=== PATIENT | male | born 1985 | race Caucasian/White ===

== ENCOUNTER → 2019-11-19 16:51 | Outpatient (CLI) | payer MEDICAID, SELFPAY ==
[2019-11-19 17:47] LABS: Basophils # 0.1 K/mm3 (0-0.2); Basophils % 0.8 % (0.1-2.0); Eosinophils # 0.2 K/mm3 (0.0-0.4); Eosinophils % 2.7 % (0.1-12.0); Hematocrit 45.6 % (42.0-52.0); Hemoglobin 15.3 g/dL (14.1-18.0); Lymphocytes % 29.3 % (10-50); Mean Corpuscular HGB Conc 33.7 g/dL (31.8-35.4); Mean Corpuscular Hemoglobin 30.2 pg (27.0-31.2); Mean Corpuscular Volume 89.8 fl (80-94); Mean Platelet Volume 8.4 fl (7.4-10.4); Monocytes # 0.6 K/mm3 (0.1-1.0); Monocytes % 8.2 % (1.7-9.3); Neutrophils # 4.1 K/mm3 (1.8-7.8); Platelet Count 402 K/mm3 (142-424); Red Blood Count 5.08 M/mm3 (4.60-6.20); Red Cell Distribution Width 13.6 % (11.5-17.5)
[2019-11-19 17:49] LABS: Chloride 107 mmol/L (98-107)
[2019-11-19 17:50] LABS: Potassium 4.5 mmoL/L (3.5-5.1); Sodium 138 mmol/L (136-145)
[2019-11-19 17:52] LABS: Alanine Aminotransferase 41 U/L (12-78); Albumin Level 4.7 g/dl (3.5-5.0); Albumin/Globulin Ratio 1.7 (1.1-1.8); Alkaline Phosphatase 84 U/L (38-126); Anion Gap 13.5 mEq/L (5-15); Aspartate Amino Transferase 30 U/L (17-59); Bilirubin,Total 0.6 mg/dl (0.2-1.3); Blood Urea Nitrogen 14 mg/dl (9-20); Carbon Dioxide 22 mmol/L (22.0-30.0); Estimated Glomerular Filt Rate 85 ml/min (>60); GFR (African American) 102 ML/MIN (>60); Globulin 2.8 g/dL (1.3-3.2); Total Protein,Serum 7.5 g/dl (6.3-8.2)
[2019-11-19 17:53] LABS: Calcium 9.6 mg/dl (8.4-10.2); Chol/HDL Ratio 4.7 (1-3.5); Cholesterol 163 mg/dl (140-200); Glucose 121 mg/dl (74-100); HDL Cholesterol 35 mg/dl (40-60); Triglycerides 139 mg/dl (30-150); VLDL Cholesterol 28 mg/dL (0-40)
[2019-11-19 18:05] LABS: Direct LDL Cholesterol 117.46 mg/dL (100-129)
[2019-11-19 18:11] LABS: T4 (Thyroxine) 8.9 ug/dl (5.53-11.0)
[2019-11-19 18:24] LABS: Thyroid Stimulating Hormone 0.96 uIU/mL (0.465-4.68)
[2019-11-19 20:46] LABS: Hemoglobin A1C 6.2 % (4.0-6.0)
[2019-11-21 11:18] LABS: Vitamin D 25 Hydroxy 23.6 ng/mL (30.0-100.0)
== END ==
PROVIDERS: Visit Provider Physician Assistant
DX: R73.03 Prediabetes (principal); E55.9 Vitamin D deficiency, unspecified; Z79.899 Other long term (current) drug therapy
CPT/HCPCS: 80053; 80061; 82652; 83036; 84436; 84443; 85025

== ENCOUNTER 2020-02-01 16:09 | Emergency (ER) | payer MEDICAID, SELFPAY ==
[2020-02-01 16:18] VITALS: BP 150/98; PULSE 88; RESP 17; O2SAT 100; BMI 38.8
--- NOTE | 2020-02-01 16:34 | HMH.EDUTC ---
[facility] [place] Disposition Clinical Impression: Otitis media Qualifiers: Otitis media type: unspecified Laterality: right Qualified Code(s): H66.91 - Otitis media, unspecified, right ear Disposition: Home, Self-Care Condition on Discharge: Good Instructions: Middle Ear Infection, Middle Ear Infections (Alternative Therapy), Amoxicillin Additional Instructions: Take medication as prescribed *Over the counter Motrin and/or Tylenol may help with fever or pain Return if needed Straight to ER if any life threatening symptoms Follow up with Family Doctor if no improvement or any worsening of symptoms Prescriptions: Amoxicillin [Amoxicillin 500mg Cap] 500 mg PO TID #30 cap Transmission Status: Pending to [id number] Referrals: Makeda Garcia PA [Primary Care Provider] - As needed Time of Disposition: 16:44 Medical Decision Making - Cesar Inquiry Pt receiving controlled substance: No Cesar was queried for this patient: No Vital Signs: 02/01/20 16:18 Pulse Rate [Radial] 88 Respiratory Rate 17 Blood Pressure [Right Arm] 150/98 H Blood Pressure Mean [Right Arm] 115 Blood Pressure Source [Right Arm] Automatic Cuff Blood Pressure Position [Right Arm] Sitting 02 Sat by Pulse Oximetry 100 Oxygen Delivery Method Room Air [facility] [place] HPI - General Stated complaint: Ear pain Time Seen by Provider: 02/01/20 16:34 Mode of Arrival: Ambulatory Source of Information: Patient Limitations: No Limitations Description of Symptoms (Recalled from Triage Doc. by RN): right ear stopped up HEENT Symptoms (Recalled from RN notes): Yes Resp Symptoms (Recalled from RN notes): No Skin Symptoms (Recalled from RN notes): No MS Symptoms (Recalled from RN notes): No Functional Status (Recalled from RN notes): wnl - History of Present Illness Provider Complaint: Patient states that he has been having pain in his right ear and feeling like it was stopped up and having pain and pressure States that he is not sure if it is infected or stopped up but today it was hurting worse so he came in to get it checked - Related Data Previous Rx's Medication Instructions Recorded hydrochlorothiazide 12.5 mg tablet 12.5 mg PO DAILY #90 tab 11/19/19 lisinopril 40 mg tablet 40 mg PO DAILY #90 tab 11/19/19 loratadine 10 mg tablet 10 mg PO DAILY #90 tab 06/10/20 simvastatin 40 mg tablet 40 mg PO QHS #90 tab 11/19/19 cholecalciferol (vitamin D3) 25 25 mcg PO DAILY #90 cap 11/21/19 mcg (1,000 unit) capsule ergocalciferol (vitamin D2) 1,250 1,250 mcg PO QWEEK #12 cap 11/21/19 mcg (50,000 unit) capsule omeprazole magnesium 20 mg 20 mg PO DAILY #90 tab 01/22/20 tablet,delayed release Amoxicillin [Amoxicillin 500mg 500 mg PO TID #30 cap 02/01/20 Cap] Allergies Allergy/AdvReac Type Severity Reaction Status Date / Time aspirin [ASPIRIN] Allergy Unknown Verified 11/19/19 13:09 - Worker's Comp Is this a Worker's Comp case?: No [facility] History - Hepatitis A Screen Drug use history?: No High risk sexual behaviors?: No History of sexually transmitted infection?: No Currently employed?: No Childcare worker?: No Do you have indoor plumbing?: Yes Do you have electricity?: Yes Attestation statement:: This patient has been screened for Hepatitis A risk factors. I have reviewed the patient's past medical history: Yes Medical History: Reports:: Diabetes Mellitus Type 2, Gastroesophageal Reflux Disease(GERD), Hyperlipidemia, Hypertension Other Medical History: Reports: Other Other Surgeries: Yes: Appendectomy Amputation: No Fractures: No - Social History Smoking Status: Current every day smoker Tobacco Type: cigarettes # Packs/Day (cigarettes): 1 Alcohol Intake: never Substance Use Type: denies use Occupational Status: employed Housing: house Household Members: family Family Hx:: Diabetes, Hypertension ROS Obtained: Yes All systems reviewed & no additional complaints, Yes Systems reviewed as appropriate & no additional comp
[2020-02-01 17:02] VITALS: BP 150/98; PULSE 88; RESP 17; TEMP 36.7; O2SAT 100
== END 2020-02-01 17:03 | disposition home or self-care (01) ==
PROVIDERS: Emergency Provider Nurse Practitioner; PCP Physician Assistant
DX: H66.91 Otitis media, unspecified, right ear (principal); E11.9 Type 2 diabetes mellitus without complications; I10 Essential (primary) hypertension; E78.5 Hyperlipidemia, unspecified; K21.9 Gastro-esophageal reflux disease without esophagitis; F17.210 Nicotine dependence, cigarettes, uncomplicated; Z79.899 Other long term (current) drug therapy
CPT/HCPCS: 99201

== ENCOUNTER 2020-04-26 16:39 | Emergency (ER) | payer MEDICAID, SELFPAY ==
[2020-04-26 16:49] VITALS: BP 120/73; PULSE 89; RESP 18; TEMP 36.8; O2SAT 100; BMI 39.6
[2020-04-26 17:05] VITALS: BP 120/73; PULSE 89; RESP 18; TEMP 36.8; O2SAT 100; BMI 39.6
--- NOTE | 2020-04-26 17:20 | HMH.EDUTC ---
[facility] [place] Clinical Impression: Low back pain Qualifiers: Chronicity: unspecified Back pain laterality: bilateral Sciatica presence: without sciatica Qualified Code(s): M54.5 - Low back pain Disposition: Home, Self-Care Condition on Discharge: Good Additional Instructions: Go home and rest. It would be best if you rested tomorrow too. No heavy lifting. No twisting. Take the oral medications as directed. The muscle relaxer (robaxin) will make you drowsy, so don't drive or operate heavy machinery after taking it. Follow up with your regular doctor. GO TO THE ER FOR ANY WORSENING SYMPTOMS OR CONCERN, ESPECIALLY BOWEL OR BLADDER ISSUES, SADDLE AREA NUMBNESS, FEVER, ETC Prescriptions: predniSONE [Prednisone 20mg Tab] 20 mg PO BID 5 Days #10 tab Transmission Status: Received by [facility] Methocarbamol [Robaxin 500mg Tab] 500 mg PO BIDP PRN #30 tab PRN Reason: Muscle Spasm Transmission Status: Received by [id number] Referrals: Makeda Garcia PA [Primary Care Provider] - Time of Disposition: 17:59 Medical Decision Making - Medical Records Medical records reviewed: No: I reviewed the patient's medical records. - Cesar Inquiry Pt receiving controlled substance: No Vital Signs: 04/26/20 16:49 04/26/20 17:05 04/26/20 18:09 Temperature 98.2 F 98.2 F 98.2 F Temperature Source Oral Oral Pulse Rate 89 Pulse Rate [Right Radial] 89 89 Respiratory Rate 18 18 18 Blood Pressure 120/73 Blood Pressure [Right Arm] 120/73 120/73 Blood Pressure Mean [Right Arm] 88 88 Blood Pressure Source [Right Arm] Automatic Cuff Automatic Cuff Blood Pressure Position [Right Arm] Sitting Sitting 02 Sat by Pulse Oximetry 100 100 Oxygen Delivery Method Room Air Room Air - Lab Data Lab Results 04/26/20 17:45: Urine Color Yellow, Urine Appearance Clear, Urine pH 7.5, Ur Specific [place] 1.020, Urine Protein Negative, Urine Glucose (UA) Negative, Urine Ketones Negative, Urine Blood Negative, Urine Nitrate Negative, Urine Bilirubin Negative, Urine Urobilinogen 0.2, Ur Leukocyte Esterase Negative - Radiology Data #1 Image(s): L-Spine Image Reviewed: Yes I reviewed the patient's radiology image Preliminary Findings: No Fracture Seen [facility] [place] - General Stated complaint: Back pain for 4 WKs Time Seen by Provider: 04/26/20 17:20 Mode of Arrival: Ambulatory Source of Information: Patient Limitations: No Limitations Description of Symptoms (Recalled from Triage Doc. by RN): Pt reports a numbness feeling in his back for approx 4 weeks after sitting for long periods of time. Pt denies no injury. Pt denies any bowel or bladder symptoms, pt states numbness does not radiate down legs. HEENT Symptoms (Recalled from RN notes): No Resp Symptoms (Recalled from RN notes): No Skin Symptoms (Recalled from RN notes): No MS Symptoms (Recalled from RN notes): Yes Functional Status (Recalled from RN notes): WNL - History of Present Illness Provider Complaint: He states that for the past 2 weeks he has had lower back pain. He denies any injury or falls. He states that in the past he has had episodes of pain similar to this. He denies any difficulty urinating. - Related Data Home Medications Medication Instructions Recorded Confirmed Omeprazole Magnesium [Prilosec OTC] 20 mg PO DAILY 04/26/20 04/26/20 hydroCHLOROthiazide 12.5 mg PO DAILY 04/26/20 04/26/20 [Hydrochlorothiazide 12.5mg Tab] lisinopriL [Lisinopril 40mg Tablet] 40 mg PO DAILY 04/26/20 04/26/20 Previous Rx's Medication Instructions Recorded Methocarbamol [Robaxin 500mg Tab] 500 mg PO BIDP PRN #30 tab 04/26/20 predniSONE [Prednisone 20mg 20 mg PO BID 5 Days #10 tab 04/26/20 Tab] Allergies Allergy/AdvReac Type Severity Reaction Status Date / Time aspirin [ASPIRIN] Allergy Unknown Verified 02/25/20 15:38 - Worker's Comp Is this a Worker's Comp case?: No [facility] History - Hepatitis A
--- NOTE | 2020-04-26 17:42 | XR_ITS ---
PROCEDURE: XR LUMBAR SPINE 2-3V CLINICAL INDICATION: low back pain COMPARISON: No exams were available for comparison FINDINGS: There is normal alignment. There are degenerative changes with osteophytes along the anterior aspect of L3 L1-T12 and T11 with mild wedging of T12-L1 and L3 which may be chronic. There is an area of questionable discontinuity along the anterior and inferior aspect of the L2 vertebral body which could be developmental versus a nondisplaced fracture. On the AP view there is also lucency through the lateral aspect of the T12 transverse process but may be related to overlying soft tissue artifact or fold. Other findings: IMPRESSION: There are degenerative changes with questionable fracture of the L2 vertebral body and T12 transverse process on the left. CT may provide further evaluation if clinically warranted. Dictated by: Gamaliel Pablo MD 04/27/2020 05:28 Gamaliel Pablo MD in [place] 04/27/2020 05:28
[2020-04-26 17:45] LABS: Apearance,Urine Clear (Clear); Color,Urine Yellow (Yellow); Glucose,Urine (UA) Negative (Negative); PH,Urine 7.5 (5.0-8.5); Protein,Urine Negative (Negative)
[2020-04-26 17:46] LABS: Bilirubin,Urine Negative (Negative); Blood, Urine Negative (Negative); Ketones,Urine Negative (Negative); UTC Leukocyte Esterase,Urine Negative (Negative); UTC Nitrate,Urine Negative (Negative); Urobilinogen,Urine 0.2 EU/dl (0.2)
[2020-04-26 18:09] VITALS: BP 120/73; PULSE 89; RESP 18; TEMP 36.8; O2SAT 100
--- NOTE | 2020-04-27 13:09 | PC.NURSE ---
Spoke to patient related to Provider request. Notified patient of final read of xrays. Educated patient to follow up with his PCP to see about getting ct scan as suggested by radiologist.
== END 2020-04-26 18:14 | disposition home or self-care (01) ==
LOC: ER 16:50 → UTC 16:50
PROVIDERS: Emergency Provider Nurse Practitioner Family; PCP Physician Assistant
DX: M54.5 Low back pain (principal); I10 Essential (primary) hypertension; E11.9 Type 2 diabetes mellitus without complications; K21.9 Gastro-esophageal reflux disease without esophagitis; E78.5 Hyperlipidemia, unspecified; F17.210 Nicotine dependence, cigarettes, uncomplicated; Z79.899 Other long term (current) drug therapy
CPT/HCPCS: 72100; 81003; 99202

== ENCOUNTER → 2020-05-11 08:11 | Outpatient (CLI) | payer MEDICAID, SELFPAY ==
--- NOTE | 2020-05-11 08:11 | CT_ITS ---
PROCEDURE: CT LUMBAR SPINE WO CON CLINICAL HISTORY: Low back pain lbp no known injury numbness sacral area does not radiate to legs COMPARISON: CR XR LUMBAR SPINE 2-3V from 04/26/2020 TECHNIQUE: Axial images obtained with sagittal and coronal reformats. All CT scans at the facility use one or more dose reduction, viz: automated exposure control, ma/kV adjustment per patient size (including targeted exams where dose is matched to indication, i.e. head), or iterative reconstruction technique. FINDINGS: There is normal alignment. No acute fracture or dislocation. No lytic or blastic change. There is multilevel lumbar spondylosis. T11-T12: Degenerative disc disease. T12-L1: Degenerate disc disease with anterior osteophytes. L1-L2: Mild degenerative disc disease. L2-L3: Small anterior osteophytes. L3-L4: There is mild facet and ligamentum hypertrophy with minimal bulging disc. There is narrowing of the canal at 10 mm and mild bilateral lateral recess and foraminal narrowing. L4-5: Mild concentric bulging disc with facet and ligamentum hypertrophy with canal stenosis 8 mm. Mild bilateral lateral recess and foraminal narrowing. L5-S1: Bulging disc with facet and ligamentum hypertrophy with canal stenosis at 10 mm with bilateral lateral recess and foraminal narrowing. IMPRESSION: Multilevel lumbar spondylosis with canal stenosis as described above. Dictated by: Gamaliel Pablo MD 05/12/2020 10:41 Gamaliel Pablo MD in [place] 05/12/2020 10:41
== END ==
PROVIDERS: PCP Physician Assistant; Visit Provider Nurse Practitioner Family
DX: M54.5 Low back pain (principal)
CPT/HCPCS: 72131

== ENCOUNTER 2020-05-19 15:07 | Outpatient (RCR) | payer MEDICAID, SELFPAY ==
--- NOTE | 2020-05-19 16:07 | HMH.PTOPEV ---
PT Outpatient Evaluation Rehab PT Outpatient Evaluation Start: 05/19/20 15:17 Freq: Status: Active Protocol: Document 05/19/20 15:54 ELVIS (Rec: 05/19/20 16:07 ELVIS [id number]) Electronically Signed By Jace Nuñez, PT 05/19/20 15:54 Outpatient Therapy Subjective History Subjective History Patient is a 34 year old male presenting to outpatient PT with reports of acute low back pain starting approximately 8 weeks ago after doing some exercises at home. No radicular symptoms to report. He initially experienced numbness in the upper lumbar spine. Pain is specific to the upper lumbar area. Most recent imaging indicates multi -level DDD, spondylosis and multiple bulging discs. Comorbidities include hx of HTN, HL and appendectomy. Chief Complaint Pain,Stiff Symptom Type Dull,Numbness Symptoms Relieved By Heat,OTC Meds Symptoms Aggravated By Sitting,Bending/Stooping, Lifting Prior Functional Limitations None Current Functional Limitations Lifting,Housework,Sleeping, Sitting,Squatting,Recreation Activity,Bending/Stooping Symptom Description Constant but Variable Level of pain today (0-10) 4 Pain scale - at its best (0-10) 4 Pain scale - at its worst (0-10) 7 Lumbopelvic Eval Posture Thoracic Spine Posture Standing Position Increased Kyphosis Lumbar Spine Posture Standing Position Increased Lordosis Palapation tenderness bilateral lumbar spinal tenderness Yes: L1/L2 2/4 Accessory Movement T12 bilateral L2 bilateral Range of Motion Lumbar Spine ROM Reason Not Measured Within Functional Limits Manual Muscle Test Bilateral Knee Extension Strength Grade 5 Normal Knee Flexion Strength Grade 5 Normal Hip Flexion Strength Grade 5 Normal Extensor Hallucis Longus Strength Grade 5 Normal Ankle Dorsiflexion Strength Grade 5 Normal Gastronemius/Soleus Strength Grade 5 Normal DTR Rt Patellar 2+ Lt Patellar 2+ Rt Gastroc/Soleus 2+ Lt Gastroc/Soleus 2+ Special Tests Lumbar Spine Screen Positive Hip Jack (TREE) Test Positive Left Hip Romana Test Positive Left,Positive Right Hip Piriformis Test Po
== END 2020-05-19 15:10 | disposition home or self-care (01) ==
LOC: PT 15:07
PROVIDERS: PCP Physician Assistant; Visit Provider Nurse Practitioner Family
DX: M54.5 Low back pain (principal)
CPT/HCPCS: 97163

== ENCOUNTER → 2020-06-01 17:25 | Outpatient (CLI) | payer MEDICAID, SELFPAY ==
[2020-06-01 18:27] LABS: Basophils # 0.1 K/mm3 (0-0.2); Basophils % 1.1 % (0.1-2.0); Eosinophils # 0.2 K/mm3 (0.0-0.4); Eosinophils % 2.1 % (0.1-12.0); Hemoglobin 15.7 g/dL (14.1-18.0); Lymphocytes # 2.3 K/mm3 (0.7-4.5); Lymphocytes % 31.6 % (10-50); Mean Corpuscular HGB Conc 33.3 g/dL (31.8-35.4); Mean Corpuscular Hemoglobin 29.9 pg (27.0-31.2); Mean Corpuscular Volume 89.7 fl (80-94); Mean Platelet Volume 8.7 fl (7.4-10.4); Monocytes # 0.7 K/mm3 (0.1-1.0); Monocytes % 9.5 % (1.7-9.3); Neutrophils # 4.1 K/mm3 (1.8-7.8); Neutrophils % 55.6 % (37.0-80.0); Platelet Count 447 K/mm3 (142-424); Red Blood Count 5.24 M/mm3 (4.60-6.20); Red Cell Distribution Width 14.1 % (11.5-17.5); White Blood Count 7.3 K/mm3 (4.8-10.8)
[2020-06-01 18:45] LABS: Alanine Aminotransferase 66 U/L (12-78); Albumin Level 4.8 g/dl (3.5-5.0); Albumin/Globulin Ratio 1.7 (1.1-1.8); Alkaline Phosphatase 78 U/L (38-126); Anion Gap 14.1 mEq/L (5-15); Aspartate Amino Transferase 41 U/L (17-59); Bilirubin,Total 0.5 mg/dl (0.2-1.3); Blood Urea Nitrogen 13 mg/dl (9-20); Carbon Dioxide 24 mmol/L (22.0-30.0); Chloride 103 mmol/L (98-107); Chol/HDL Ratio 5.2 (1-3.5); Cholesterol 193 mg/dl (140-200); Estimated Glomerular Filt Rate 85 ml/min (>60); GFR (African American) 102 ML/MIN (>60); Globulin 2.9 g/dL (1.3-3.2); Glucose 112 mg/dl (74-100); HDL Cholesterol 37 mg/dl (40-60); Potassium 4.1 mmoL/L (3.5-5.1); Sodium 137 mmol/L (136-145); Total Protein,Serum 7.7 g/dl (6.3-8.2); Triglycerides 220 mg/dl (30-150); VLDL Cholesterol 44 mg/dL (0-40)
[2020-06-01 19:04] LABS: 25-OH Vitamin D, Total 26.3 ng/mL (30-100)
[2020-06-01 19:06] LABS: Direct LDL Cholesterol 120.59 mg/dL (100-129)
[2020-06-01 19:18] LABS: Thyroid Stimulating Hormone 1.22 uIU/mL (0.465-4.68)
[2020-06-01 19:32] LABS: Hemoglobin A1C 6.3 % (4.0-6.0)
[2020-06-01 20:23] LABS: Free T4 (Free Thyroxine) 1.13 ng/dl (0.78-2.19)
== END ==
PROVIDERS: Visit Provider Physician Assistant
DX: R53.83 Other fatigue (principal); R73.03 Prediabetes; E55.9 Vitamin D deficiency, unspecified; Z79.899 Other long term (current) drug therapy
CPT/HCPCS: 80053; 80061; 82306; 83036; 84439; 84443; 85025

== ENCOUNTER → 2020-07-07 16:48 | Outpatient (CLI) | payer MEDICAID, SELFPAY ==
[2020-07-07 17:17] LABS: Basophils # 0.1 K/mm3 (0-0.2); Basophils % 1.1 % (0.1-2.0); Eosinophils # 0.3 K/mm3 (0.0-0.4); Eosinophils % 3.4 % (0.1-12.0); Hematocrit 45.2 % (42.0-52.0); Lymphocytes % 34.2 % (10-50); Mean Corpuscular HGB Conc 33.1 g/dL (31.8-35.4); Mean Corpuscular Hemoglobin 30.2 pg (27.0-31.2); Mean Corpuscular Volume 91.1 fl (80-94); Mean Platelet Volume 8.1 fl (7.4-10.4); Monocytes # 0.9 K/mm3 (0.1-1.0); Monocytes % 10.7 % (1.7-9.3); Neutrophils # 4.4 K/mm3 (1.8-7.8); Neutrophils % 50.6 % (37.0-80.0); Platelet Count 424 K/mm3 (142-424); Red Blood Count 4.96 M/mm3 (4.60-6.20); Red Cell Distribution Width 13.4 % (11.5-17.5); White Blood Count 8.7 K/mm3 (4.8-10.8)
[2020-07-09 16:50] LABS: Peripheral Smear Review Scanned Result
== END ==
PROVIDERS: Visit Provider Physician Assistant
DX: R79.89 Other specified abnormal findings of blood chemistry (principal)
CPT/HCPCS: 85025

== ENCOUNTER → 2021-02-21 18:28 | Outpatient (CLI) | payer MEDICAID, SELFPAY ==
[2021-02-21 18:47] LABS: Chloride 105 mmol/L (98-107); Potassium 4.1 mmoL/L (3.5-5.1); Sodium 139 mmol/L (136-145)
[2021-02-21 18:49] LABS: Blood Urea Nitrogen 12 mg/dl (9-20); Estimated Glomerular Filt Rate 84 ml/min (>60); GFR (African American) 102 ML/MIN (>60)
[2021-02-21 18:50] LABS: Alanine Aminotransferase 44 U/L (12-78); Albumin Level 4.5 g/dl (3.5-5.0); Albumin/Globulin Ratio 1.7 (1.1-1.8); Alkaline Phosphatase 80 U/L (38-126); Anion Gap 15.1 mEq/L (5-15); Aspartate Amino Transferase 30 U/L (17-59); Bilirubin,Total 0.4 mg/dl (0.2-1.3); Calcium 9.5 mg/dl (8.4-10.2); Carbon Dioxide 23 mmol/L (22.0-30.0); Cholesterol 160 mg/dl (140-200); Globulin 2.7 g/dL (1.3-3.2); Glucose 113 mg/dl (74-100); Total Protein,Serum 7.2 g/dl (6.3-8.2); Triglycerides 124 mg/dl (30-150); VLDL Cholesterol 25 mg/dL (0-40)
[2021-02-21 18:51] LABS: Chol/HDL Ratio 5.3 (1-3.5); HDL Cholesterol 30 mg/dl (40-60)
[2021-02-21 19:06] LABS: Basophils # 0.1 K/mm3 (0-0.2); Basophils % 0.8 % (0.1-2.0); Eosinophils # 0.2 K/mm3 (0.0-0.4); Eosinophils % 2.1 % (0.1-12.0); Hematocrit 44.3 % (42.0-52.0); Hemoglobin 14.6 g/dL (14.1-18.0); Lymphocytes # 2.1 K/mm3 (0.7-4.5); Lymphocytes % 28.3 % (10-50); Mean Corpuscular Hemoglobin 29.5 pg (27.0-31.2); Mean Corpuscular Volume 89.4 fl (80-94); Mean Platelet Volume 7.5 fl (7.4-10.4); Monocytes # 0.8 K/mm3 (0.1-1.0); Monocytes % 10.3 % (1.7-9.3); Neutrophils # 4.3 K/mm3 (1.8-7.8); Neutrophils % 58.6 % (37.0-80.0); Platelet Count 448 K/mm3 (142-424); Red Blood Count 4.96 M/mm3 (4.60-6.20); Red Cell Distribution Width 13.1 % (11.5-17.5); White Blood Count 7.4 K/mm3 (4.8-10.8)
[2021-02-21 19:08] LABS: Free T4 (Free Thyroxine) 1.03 ng/dl (0.78-2.19)
[2021-02-21 19:10] LABS: 25-OH Vitamin D, Total 29.1 ng/mL (30-100)
[2021-02-21 19:16] LABS: Hemoglobin A1C 6.3 % (4.0-6.0)
[2021-02-21 19:20] LABS: Thyroid Stimulating Hormone 0.86 uIU/mL (0.465-4.68)
[2021-02-21 21:33] LABS: Direct LDL Cholesterol 107.61 mg/dL (100-129)
[2021-02-23 06:30] LABS: Testosterone,Total 591 ng/dL (264-916)
== END ==
PROVIDERS: Visit Provider Physician Assistant
DX: I10 Essential (primary) hypertension (principal); E78.5 Hyperlipidemia, unspecified; R73.03 Prediabetes; E55.9 Vitamin D deficiency, unspecified
CPT/HCPCS: 80053; 80061; 82306; 83036; 84403; 84439; 84443; 85025

== ENCOUNTER 2021-05-07 19:15 | Emergency (ER) | payer MEDICAID, SELFPAY ==
[2021-05-07 19:20] VITALS: BP 130/80; PULSE 85; RESP 18; TEMP 37.1; O2SAT 100; BMI 40.6
--- NOTE | 2021-05-07 19:43 | HMH.EDUTC ---
[facility] [place] Disposition Clinical Impression: Groin discomfort Qualifiers: Laterality: right Qualified Code(s): R10.31 - Right lower quadrant pain Disposition: Home, Self-Care Condition on Discharge: Good Instructions: Groin Strain Additional Instructions: Make sure to call and make appointment with your Family Doctor for further evaluation and testing Follow up with your Family Doctor Return if needed Straight to ER if any life threatening symptoms or trouble urinating Referrals: Makeda Garcia PA [Primary Care Provider] - As needed Forms: Work/School Release Time of Disposition: 20:12 Medical Decision Making - Cesar Inquiry Pt receiving controlled substance: No Cesar was queried for this patient: No Vital Signs: 05/07/21 19:20 Temperature 98.8 F Temperature Source Oral Pulse Rate [Right Brachial] 85 Respiratory Rate 18 Blood Pressure [Right Arm] 130/80 Blood Pressure Mean [Right Arm] 96 Blood Pressure Source [Right Arm] Automatic Cuff Blood Pressure Position [Right Arm] Sitting 02 Sat by Pulse Oximetry 100 Oxygen Delivery Method Room Air - Lab Data Lab results reviewed: Yes: I reviewed the patient's lab results. Lab Results 05/07/21 19:49: Urine Color Yellow, Urine Appearance Clear, Urine pH 6.0, Ur Specific [place] 1.015, Urine Protein Negative, Urine Glucose (UA) Negative, Urine Ketones Negative, Urine Blood Negative, Urine Nitrate Negative, Urine Bilirubin Negative, Urine Urobilinogen 0.2, Ur Leukocyte Esterase Negative Medical Decision Narrative: Discussed with patient UA clean Patient still denies fever, chills, body aches trouble urinating or discharge from Penis an no obvious hernia palpated on exam Discussed with patient that we could order abdominal ultrasound and/or He could follow up with his PCP for further evaluation and tested and he agreed he would just follow up with his PCP for further testing and evaluation if pain continues [facility] [place] HPI - General Stated complaint: Groin pain Time Seen by Provider: 05/07/21 19:43 Mode of Arrival: Ambulatory Source of Information: Patient Limitations: No Limitations Description of Symptoms (Recalled from Triage Doc. by RN): PATIENT C/O RIGHT SIDED GROIN PAIN SINCE SUNDAY HEENT Symptoms (Recalled from RN notes): No Resp Symptoms (Recalled from RN notes): No Skin Symptoms (Recalled from RN notes): No MS Symptoms (Recalled from RN notes): No Functional Status (Recalled from RN notes): WNL - History of Present Illness Provider Complaint: Patient states that he has been having pain in his right groin area on and off since states that seems like sitting makes it worse at times Denies fever, denies chills, denies trouble with urination States that tonight he was still a little tender at times when he would sit down so he came in to get checked Denies known injury States that he did have pain in his lower back area 2 weeks ago but that got better - Related Data Home Medications Medication Instructions Recorded Confirmed Atorvastatin Calcium [Lipitor 10mg 10 mg PO HS 05/07/21 05/07/21 Tab] Metformin HCl [Metformin HCl ER] 500 mg PO DAILY 05/07/21 05/07/21 Omeprazole Magnesium 20 mg PO DAILY 05/07/21 05/07/21 hydroCHLOROthiazide 12.5 mg PO DAILY 05/07/21 05/07/21 [Hydrochlorothiazide 12.5mg Tab] lisinopriL [Lisinopril] 40 mg PO DAILY 05/07/21 05/07/21 Allergies Allergy/AdvReac Type Severity Reaction Status Date / Time aspirin [ASPIRIN] Allergy Unknown Verified 02/21/21 16:04 - Worker's Comp Is this a Worker's Comp case?: No [facility] History - Hepatitis A Screen Drug use history?: No High risk sexual behaviors?: No History of sexually transmitted infection?: No Currently employed?: No Childcare worker?: No Do you have indoor plumbing?: Yes Do you have electricity?: Yes Attestation statement:: This patient has been screened for Hepatitis A risk factors. I have reviewed the patient's past medical history: Yes
[2021-05-07 19:50] LABS: Apearance,Urine Clear (Clear); Bilirubin,Urine Negative (Negative); Blood, Urine Negative (Negative); Color,Urine Yellow (Yellow); Glucose,Urine (UA) Negative (Negative); Ketones,Urine Negative (Negative); Protein,Urine Negative (Negative); Specific Gravity, Urine 1.015 (1.005-1.030); UTC Leukocyte Esterase,Urine Negative (Negative); UTC Nitrate,Urine Negative (Negative); Urobilinogen,Urine 0.2 EU/dl (0.2)
[2021-05-07 20:09] VITALS: BP 130/80; PULSE 85; RESP 18; TEMP 37.1; O2SAT 100
== END 2021-05-07 20:19 | disposition home or self-care (01) ==
PROVIDERS: Emergency Provider Nurse Practitioner; PCP Physician Assistant
DX: R10.31 Right lower quadrant pain (principal); K21.9 Gastro-esophageal reflux disease without esophagitis; E11.9 Type 2 diabetes mellitus without complications; I10 Essential (primary) hypertension; F17.210 Nicotine dependence, cigarettes, uncomplicated
CPT/HCPCS: 81003; 99202; G0463

== ENCOUNTER → 2021-07-05 17:58 | Outpatient (CLI) | payer MEDICAID, SELFPAY ==
[2021-07-05 18:40] LABS: Alanine Aminotransferase 53 U/L (12-78); Albumin Level 5.2 g/dl (3.5-5.0); Albumin/Globulin Ratio 1.8 (1.1-1.8); Alkaline Phosphatase 72 U/L (38-126); Anion Gap 12.3 mEq/L (5-15); Aspartate Amino Transferase 36 U/L (17-59); Bilirubin,Total 0.6 mg/dl (0.2-1.3); Blood Urea Nitrogen 13 mg/dl (9-20); Calcium 10.1 mg/dl (8.4-10.2); Carbon Dioxide 27 mmol/L (22.0-30.0); Chloride 102 mmol/L (98-107); Chol/HDL Ratio 6.3 (1-3.5); Cholesterol 233 mg/dl (140-200); Estimated Glomerular Filt Rate 75 ml/min (>60); GFR (African American) 91 ML/MIN (>60); Globulin 2.9 g/dL (1.3-3.2); Glucose 108 mg/dl (74-100); HDL Cholesterol 37 mg/dl (40-60); Potassium 4.3 mmoL/L (3.5-5.1); Sodium 137 mmol/L (136-145); Total Protein,Serum 8.1 g/dl (6.3-8.2); Triglycerides 197 mg/dl (30-150); VLDL Cholesterol 39 mg/dL (0-40)
[2021-07-05 18:47] LABS: Basophils # 0.1 K/mm3 (0-0.2); Basophils % 1.8 % (0.1-2.0); Eosinophils # 0.2 K/mm3 (0.0-0.4); Eosinophils % 2.7 % (0.1-12.0); Hematocrit 46.4 % (42.0-52.0); Hemoglobin 15.3 g/dL (14.1-18.0); Lymphocytes # 2.5 K/mm3 (0.7-4.5); Lymphocytes % 35.2 % (10-50); Mean Corpuscular HGB Conc 32.9 g/dL (31.8-35.4); Mean Corpuscular Volume 91.3 fl (80-94); Mean Platelet Volume 8.1 fl (7.4-10.4); Monocytes # 0.6 K/mm3 (0.1-1.0); Monocytes % 8.9 % (1.7-9.3); Neutrophils # 3.7 K/mm3 (1.8-7.8); Neutrophils % 51.4 % (37.0-80.0); Platelet Count 483 K/mm3 (142-424); Red Blood Count 5.08 M/mm3 (4.60-6.20); Red Cell Distribution Width 13.6 % (11.5-17.5); White Blood Count 7.1 K/mm3 (4.8-10.8)
[2021-07-05 18:57] LABS: T4 (Thyroxine) 10.1 ug/dl (5.53-11.0)
[2021-07-05 19:10] LABS: Thyroid Stimulating Hormone 1.15 uIU/mL (0.465-4.68)
== END ==
PROVIDERS: Visit Provider Physician Assistant
DX: I10 Essential (primary) hypertension (principal); E78.5 Hyperlipidemia, unspecified; E66.9 Obesity, unspecified; Z68.37 Body mass index [BMI] 37.0-37.9, adult
CPT/HCPCS: 80053; 80061; 82306; 84436; 84443; 85025

== ENCOUNTER → 2021-08-10 16:08 | Outpatient (CLI) | payer MEDICAID, SELFPAY ==
[2021-08-10 17:43] LABS: Alanine Aminotransferase 61 U/L (12-78); Albumin Level 4.7 g/dl (3.5-5.0); Albumin/Globulin Ratio 1.9 (1.1-1.8); Alkaline Phosphatase 66 U/L (38-126); Anion Gap 14.4 mEq/L (5-15); Aspartate Amino Transferase 40 U/L (17-59); Bilirubin,Total 0.5 mg/dl (0.2-1.3); Blood Urea Nitrogen 11 mg/dl (9-20); Calcium 9.4 mg/dl (8.4-10.2); Carbon Dioxide 23 mmol/L (22.0-30.0); Chloride 104 mmol/L (98-107); Chol/HDL Ratio 5.7 (1-3.5); Cholesterol 170 mg/dl (140-200); Estimated Glomerular Filt Rate 84 ml/min (>60); GFR (African American) 102 ML/MIN (>60); Globulin 2.5 g/dL (1.3-3.2); Glucose 106 mg/dl (74-100); HDL Cholesterol 30 mg/dl (40-60); Potassium 4.4 mmoL/L (3.5-5.1); Sodium 137 mmol/L (136-145); Total Protein,Serum 7.2 g/dl (6.3-8.2); Triglycerides 173 mg/dl (30-150); VLDL Cholesterol 35 mg/dL (0-40)
[2021-08-10 17:54] LABS: Direct LDL Cholesterol 102.23 mg/dL (100-129)
[2021-08-10 18:15] LABS: Thyroid Stimulating Hormone 0.88 uIU/mL (0.465-4.68)
== END ==
PROVIDERS: Visit Provider Physician Assistant
DX: E78.5 Hyperlipidemia, unspecified (principal); R73.03 Prediabetes
CPT/HCPCS: 80053; 80061; 83036; 84443

== ENCOUNTER 2021-09-21 17:16 | Emergency (ER) | payer MEDICAID, SELFPAY ==
[2021-09-21 18:15] VITALS: BP 123/99; PULSE 94; RESP 14; TEMP 37; O2SAT 99; BMI 39.3
--- NOTE | 2021-09-21 18:39 | HMH.EDUTC ---
[facility] [place] Clinical Impression: Acute bronchitis Qualifiers: Bronchitis organism: unspecified organism Qualified Code(s): J20.9 - Acute bronchitis, unspecified Sinusitis Qualifiers: Sinusitis location: unspecified location Chronicity: acute Recurrence: non-recurrent Qualified Code(s): J01.90 - Acute sinusitis, unspecified Disposition: Home, Self-Care Condition on Discharge: Good Instructions: DI for Sinusitis, DI for Acute Bronchitis Additional Instructions: Drink plenty of fluids. Take tylenol or ibuprofen for pain or fever. Take the medications as directed. Follow up with your regular doctor. GO TO THE ER FOR ANY WORSENING SYMPTOMS Don't start the oral steroids until tomorrow, since you had the shot here today. The cough medication (promethazine dm) will make you drowsy, so don't drive or operate heavy machinery after taking it. Prescriptions: Promethazine/Dextromethorphan [Promethazine-Dm Syrup] 5 ml PO Q6HP PRN #240 ml PRN Reason: Cough Transmission Status: Pending to [facility] methylPREDNISolone [Medrol] 4 mg PO DIRECTED 6 Days #21 packet [facility]: [facility] Azithromycin [Z-Fabrizio 250mg Tab*] 250 mg PO UD DOSE PK #6 tab [facility] Referrals: Makeda Garcia PA [Primary Care Provider] - Time of Disposition: 19:06 Medical Decision Making - Medical Records Medical records reviewed: No: I reviewed the patient's medical records. - Cesar Inquiry Pt receiving controlled substance: No Vital Signs: 09/21/21 18:15 Temperature 98.6 F Temperature Source Oral Pulse Rate [Left] 94 H Respiratory Rate 14 Blood Pressure [Right Arm] 123/99 H Blood Pressure Mean [Right Arm] 107 02 Sat by Pulse Oximetry 99 Orders (Tests/Meds): ED MEDICATIONS Discontinued Medications Generic Name Dose Route Start Last Admin Trade Name Freq PRN Reason Stop Dose Admin Ceftriaxone Sodium 1 gm 09/21/21 18:50 09/21/21 19:01 Ceftriaxone 1gm Vial IM 09/21/21 18:51 1 gm ONCE ONE Administration Lidocaine HCl 0 ml 09/21/21 18:50 09/21/21 19:00 Lidocaine 1% 5ml Pf Vial IM 09/21/21 18:51 2 ml ONCE ONE Administration Methylprednisolone Sodium Succinate 125 mg 09/21/21 18:50 09/21/21 19:01 Methylprednisolone Sod Succ 125mg Vial IM 09/21/21 18:51 125 mg ONCE ONE Administration [facility] [place] - General Stated complaint: amna, cough runny nose Time Seen by Provider: 09/21/21 18:39 Mode of Arrival: Ambulatory Source of Information: Patient Limitations: No Limitations Description of Symptoms (Recalled from Triage Doc. by RN): pt c/o a cough and congestion since last night. HEENT Symptoms (Recalled from RN notes): Yes Resp Symptoms (Recalled from RN notes): Yes Skin Symptoms (Recalled from RN notes): No MS Symptoms (Recalled from RN notes): No Functional Status (Recalled from RN notes): wnl - History of Present Illness Provider Complaint: He c/o having a sinus infection for the past 1 week. He refuses any covid or influenza test. - Related Data Home Medications Medication Instructions Recorded Confirmed Omeprazole Magnesium 20 mg PO DAILY 05/07/21 08/10/21 blood sugar diagnostic See Rx Instructions .ROUTE 07/20/21 08/10/21 .MEDSUPPLY #10 each ergocalciferol (vitamin D2) 1,250 50,000 unit PO WEEKLY cap 07/20/21 08/10/21 mcg (50,000 unit) capsule Previous Rx's Medication Instructions Recorded tramadol 50 mg tablet 50 mg PO BID PRN #6 tab 05/20/21 buspirone 5 mg tablet 5 mg PO TID #90 tab 07/05/21 simvastatin 40 mg tablet 40 mg PO HS #90 tab 07/12/21 citalopram 10 mg tablet 10 mg PO DAILY #30 tab 07/20/21 mupirocin 2 % topical ointment 1 applic TOPICAL BID #22 g 07/20/21 temazepam 7.5 mg capsule 7.5 mg PO HS #30 cap 07/20/21 lisinopril 40 mg tablet See Rx Instructions .ROUTE 08/05/21 .COMPLEX #90 tablet glipizide 2.5 mg tablet, extended 2.5 mg PO DAILY
[2021-09-21 19:24] VITALS: BP 123/99; PULSE 94; RESP 14; TEMP 37
== END 2021-09-21 19:24 | disposition home or self-care (01) ==
PROVIDERS: Emergency Provider Nurse Practitioner Family; PCP Physician Assistant
DX: J20.9 Acute bronchitis, unspecified (principal); J01.90 Acute sinusitis, unspecified; E11.9 Type 2 diabetes mellitus without complications; K21.9 Gastro-esophageal reflux disease without esophagitis; I10 Essential (primary) hypertension; E78.5 Hyperlipidemia, unspecified; Z79.899 Other long term (current) drug therapy
CPT/HCPCS: 96372; 99213; G0463; J0696

== ENCOUNTER 2021-10-17 16:33 | Emergency (ER) | payer MEDICAID, SELFPAY ==
[2021-10-17 17:20] VITALS: BP 128/75; PULSE 79; RESP 18; TEMP 36.8; O2SAT 99; BMI 39.7
--- NOTE | 2021-10-17 18:17 | HMH.EDUTC ---
[facility] [place] Impression: Rash Disposition: Home, Self-Care Condition on Discharge: Good Instructions: DI for Rash, Triamcinolone Topical Additional Instructions: Calamine lotion may help with itching of rash and help to dry up rash Oatmeal bathes may help with itching and soothing of skin Look to see if there may have been something you sit in or on that may have something that could have caused rash Use topical cream as prescribed Return if needed Follow up with your Family Doctor if no improvement or any worsening of symptoms Prescriptions: Triamcinolone Acetonide [Kenalog 0.1% cream 30gm tube] 1 applicatio TP BID #30 gm Transmission Status: Pending to [employer] #[id number] Referrals: Makeda Garcia PA [Primary Care Provider] - As needed Medical Decision Making - Cesar Inquiry Pt receiving controlled substance: No Cesar was queried for this patient: No Vital Signs: 10/17/21 17:20 Temperature 98.2 F Temperature Source Oral Pulse Rate [Right Brachial] 79 Respiratory Rate 18 Blood Pressure [Right Arm] 128/75 Blood Pressure Mean [Right Arm] 92 Blood Pressure Source [Right Arm] Automatic Cuff Blood Pressure Position [Right Arm] Sitting 02 Sat by Pulse Oximetry 99 Oxygen Delivery Method Room Air [facility] [place] - General Stated complaint: Rash on buttocks Time Seen by Provider: 10/17/21 18:17 Mode of Arrival: Ambulatory Source of Information: Patient Limitations: No Limitations Description of Symptoms (Recalled from Triage Doc. by RN): PATIENT C/O ITCHY AND BURNING RASH TO LEFT BUTTOCK X 2 DAYS HEENT Symptoms (Recalled from RN notes): No Resp Symptoms (Recalled from RN notes): No Skin Symptoms (Recalled from RN notes): Yes MS Symptoms (Recalled from RN notes): No Functional Status (Recalled from RN notes): WNL - History of Present Illness Provider Complaint: Patient states that he has a rash covering the lower part of his left buttock area and top of left leg States that he is unsure what he may have got into States that it has been there for 2 days and he has been taking alcohol to it but it is itching him to and hurts when he puts alcohol on it - Related Data Home Medications Medication Instructions Recorded Confirmed Citalopram Hydrobromide 10 mg PO DAILY 10/17/21 10/17/21 [Citalopram 10mg Tablet] Omeprazole Magnesium [Prilosec Otc 20 mg PO DAILY 10/17/21 10/17/21 20mg Tab] Simvastatin [Zocor 40mg] 40 mg PO HS 10/17/21 10/17/21 glipiZIDE [Glipizide ER] 2.5 mg PO DAILY 10/17/21 10/17/21 hydroCHLOROthiazide 12.5 mg PO DAILY 10/17/21 10/17/21 [Hydrochlorothiazide 12.5mg Tab] lisinopriL [Lisinopril] 40 mg PO DAILY 10/17/21 10/17/21 Previous Rx's Medication Instructions Recorded Triamcinolone Acetonide [Kenalog 1 applicatio TP BID #30 gm 10/17/21 0.1% cream 30gm tube] Allergies Allergy/AdvReac Type Severity Reaction Status Date / Time aspirin [ASPIRIN] Allergy Unknown Verified 10/11/21 15:14 - Worker's Comp Is this a Worker's Comp case?: No [facility] History - Hepatitis A Screen Attestation statement:: This patient has been screened for Hepatitis A risk factors. Medical History: Reports:: Diabetes Mellitus Type 2, Gastroesophageal Reflux Disease(GERD), Hyperlipidemia, Hypertension Other Medical History: Reports: Other Other Surgeries: Yes: Appendectomy Amputation: No Fractures: No - Social History Smoking Status: Current every day smoker Tobacco Type: cigarettes # Packs/Day (cigarettes): 1 Alcohol Intake: never Substance Use Type: denies use Occupational Status: other Housing: house Household Members: family Family Hx:: Diabetes, Hypertension ROS Obtained: Yes All systems reviewed & no additional complaints, Yes Systems reviewed as appropriate & no additional complaints - Constitutional Constitutional: Reports system reviewed and no additional complaints, except as docu, Denies body ache, Denies chills, Denies fever(s)
[2021-10-17 18:30] VITALS: BP 128/75; PULSE 79; RESP 18; TEMP 36.8; O2SAT 99
== END 2021-10-17 18:43 | disposition home or self-care (01) ==
PROVIDERS: Emergency Provider Nurse Practitioner; PCP Physician Assistant
DX: R21 Rash and other nonspecific skin eruption (principal); E11.9 Type 2 diabetes mellitus without complications; K21.9 Gastro-esophageal reflux disease without esophagitis; I10 Essential (primary) hypertension; E78.5 Hyperlipidemia, unspecified; F17.210 Nicotine dependence, cigarettes, uncomplicated
CPT/HCPCS: 96372; 99212; G0463

== ENCOUNTER → 2021-11-01 08:54 | Outpatient (CLI) | payer MEDICAID, SELFPAY ==
--- NOTE | 2021-11-01 08:55 | US_ITS ---
FINAL REPORT TECHNIQUE: Sonographic images of the abdomen were obtained in all four quadrants. CLINICAL HISTORY: bloating after eating FINDINGS: The liver is fatty infiltrated. There is no focal hepatic lesion or intrahepatic biliary dilatation. There are likely gallstones within the gallbladder. An echogenic focus in the dependent gallbladder which does not shadow could represent a polyp. There is no pericholecystic fluid collection or gallbladder wall thickening. The common duct measures 3 mm, which is within normal limits for age. The pancreas is partially obscured. The right and left kidneys measure 9.2 and 10.3 cm respectively. There is a 2.7 cm right renal cyst. The spleen measures 10 cm in hccx-as-[id number] length. There is no focal splenic lesion. There is no ascites. The visualized abdominal aorta and inferior vena cava are within normal limits. IMPRESSION: 1. Probable gallstones and gallbladder polyp. 2. Fatty infiltrated liver. 3. Right renal cyst. Reviewed, Interpreted and Dictated by Bethany Coronel MD Transcribed by Jerilyn Ram Authenticated by Bethany Coronel MD on 11/01/2021 10:45:11 AM [facility]
== END ==
PROVIDERS: PCP Physician Assistant; Visit Provider Physician Assistant
DX: R19.8 Other specified symptoms and signs involving the digestive system and abdomen (principal)
CPT/HCPCS: 76700

== ENCOUNTER → 2021-12-15 19:12 | Outpatient (CLI) | payer MEDICAID, SELFPAY ==
--- NOTE | 2021-12-15 19:46 | XR_ITS ---
PROCEDURE INFORMATION: Exam: XR Lumbosacral Spine Exam date and time: 12/15/2021 7:39 PM Age: 36 years old Clinical indication: Low back pain TECHNIQUE: Imaging protocol: Radiologic exam of the lumbosacral spine. Views: 4 or 5 views. COMPARISON: CT LUMBAR SPINE WO CON 05/11/2020 8:15 AM FINDINGS: Bones/joints: Preserved alignment. Decreased intervertebral disc space at L5-S1. Remainder of the intervertebral disc spaces are preserved. Vertebral body heights are preserved. Moderate multilevel anterior osteophytes. Spinal canal is patent. No acute fracture, dislocation, or aggressive osseous lesion. No pars interarticularis defects. Soft tissues: Unremarkable. IMPRESSION: Mild multilevel degenerative changes without acute skeletal pathology.
== END ==
PROVIDERS: PCP Physician Assistant; Visit Provider Physician Assistant
DX: M54.50 Low back pain, unspecified (principal)
CPT/HCPCS: 72110

== ENCOUNTER 2021-12-31 17:47 | Emergency (ER) | payer MEDICAID, SELFPAY ==
--- NOTE | 2021-12-31 17:55 | CT_ITS ---
PROCEDURE INFORMATION: Exam: CT Abdomen And Pelvis With Contrast Exam date and time: 12/31/2021 7:27 PM Age: 36 years old Clinical indication: Abdominal pain; Generalized; Prior surgery; Surgery date: 6+ months; Surgery type: Appendix TECHNIQUE: Imaging protocol: Computed tomography of the abdomen and pelvis with contrast. Radiation optimization: All CT scans at this facility use at least one of these dose optimization techniques: automated exposure control; mA and/or kV adjustment per patient size (includes targeted exams where dose is matched to clinical indication); or iterative reconstruction. Contrast material: ISOVUE; Contrast volume: 75 ml; Contrast route: IV; COMPARISON: US ABDOMEN COMPLETE 11/01/2021 8:57 AM FINDINGS: Liver: Diffuse low-attenuation of the liver. No mass. Gallbladder and bile ducts: No calcified stones. No ductal dilation. Pancreas: Normal enhancement. No ductal dilation. Spleen: No splenomegaly. Adrenal glands: No mass. Kidneys and ureters: 2.9 cm right renal cyst. No hydronephrosis. Stomach and bowel: No obstruction. No mucosal thickening. Appendix: No evidence of appendicitis. Intraperitoneal space: No free air. No significant fluid collection. Vasculature: No abdominal aortic aneurysm. Lymph nodes: No enlarged lymph nodes. Urinary bladder: No acute abnormality. Reproductive: No acute abnormality. Bones/joints: Degenerative changes of the spine. No fracture. Soft tissues: No soft tissue swelling. IMPRESSION: Chronic changes without acute process.
[2021-12-31 18:01] VITALS: BP 117/67; PULSE 74; RESP 18; O2SAT 100
--- NOTE | 2021-12-31 18:01 | HMH.EDGENADL ---
ED Disposition Clinical Impression: Epigastric abdominal pain Disposition: Home, Self-Care Condition on Discharge: Good Instructions: DI for Epigastric Pain Additional Instructions: You have been evaluated for upper abdominal pain. Work-up today is reassuring. Continue taking omeprazole as prescribed. Avoid spicy food, caffeine, tobacco, alcohol. You may use Maalox for symptom management if you have reflux. Follow-up with your primary care doctor and Dr. Emanuel. Return to the emergency department for any new or worsening symptoms Referrals: Makeda Garcia PA [Primary Care Provider] - Time of Disposition: 20:03 - Critical Care Critical Care Time: No Attestation: On 12/31/21, the high probability of a clinically significant, sudden or life threatening deterioration of the following system(s) required my full and direct attention, intervention and personal management. The time I documented below is in addition to time spent performing reported procedures but includes the following listed in this critical care notation. Medical Decision Making - Medical Records Medical records reviewed: Yes: I reviewed the patient's medical records. - Cesar Inquiry Pt receiving controlled substance: No Vital Signs: 12/31/21 18:01 12/31/21 18:13 12/31/21 18:30 Temperature 98.2 F Temperature Source Oral Pulse Rate 74 78 Pulse Rate [Left Radial] 95 H Respiratory Rate 18 18 18 Blood Pressure 117/67 109/72 L Blood Pressure [Right Arm] 137/82 Blood Pressure Mean 92 84 Blood Pressure Mean [Right Arm] 100 02 Sat by Pulse Oximetry 100 98 99 12/31/21 19:00 Temperature Temperature Source Pulse Rate 86 Pulse Rate [Left Radial] Respiratory Rate 18 Blood Pressure 119/76 Blood Pressure [Right Arm] Blood Pressure Mean 88 Blood Pressure Mean [Right Arm] 02 Sat by Pulse Oximetry 99 - Lab Data Lab Results 12/31/21 19:10: WBC 7.4, RBC 4.74, Hgb 14.0 L, Hct 42.0, MCV 88.5, MCH 29.4, MCHC 33.3, RDW 12.9, Plt Count 409, MPV 6.3 L, Neut % (Auto) 58.8, Lymph % (Auto) 27.9, King % (Auto) 9.6 H, Eos % (Auto) 2.7, Baso % (Auto) 0.9, Neut # (Auto) 4.4, Lymph # (Auto) 2.1, King # (Auto) 0.7, Eos # (Auto) 0.2, Baso # (Auto) 0.1 12/31/21 19:10: Sodium 140, Potassium 4.4, Chloride 104, Carbon Dioxide 28, Anion Gap 12.4, BUN 12, Creatinine 0.90, Estimated Creat Clear 185, Estimated GFR 94, Est GFR ( Amer) 114, Glucose 116 H, Calcium 9.5, Total Bilirubin 0.4, AST 31, ALT 46, Alkaline Phosphatase 64, Total Protein 7.8, Albumin 4.8, Globulin 3.0, Albumin/Globulin Ratio 1.6, Lipase 44 Result diagrams: 12/31/21 19:10 12/31/21 19:10 Orders (Tests/Meds): ED MEDICATIONS Discontinued Medications Generic Name Dose Route Start Last Admin Trade Name Freq PRN Reason Stop Dose Admin Iopamidol 75 ml 12/31/21 19:38 12/31/21 19:39 Iopamidol-370 (76%);100ml Bottle IV 12/31/21 19:39 75 ml ONCE ONE Administration Sodium Chloride 10 ml 12/31/21 19:38 12/31/21 19:39 Sodium Chloride 0.9% 10ml Syr (Rad Only) IV 12/31/21 19:39 10 ml ONCE ONE Administration - Radiology Data #1 Image(s): Abdomen Image Reviewed: Yes I reviewed the patient's radiology results, Yes I have reviewed radiologist's interpretation Preliminary Findings: Normal/NAD Medical Decision Narrative: In summary this is a 36-year-old male with history of gallstones presenting to the emergency department with upper abdominal pain. Patient clinically stable on arrival. Vital signs within normal limits. Will obtain CBC, CMP, lipase, CT scan of the abdomen pelvis. Patient given 15 mg IV Toradol. Laboratory results are reassuring. No leukocytosis. There is no elevation in AST, ALT, alk phos or bilirubin to suggest an obstructive biliary process. Lipase within normal limits. Doubt pancreatitis. CT scan of the abdomen and pelvis shows surgical pathology. Specifically, no gallstones. No thickening of the gallbladder wa
[2021-12-31 18:13] VITALS: BP 137/82; PULSE 95; RESP 18; TEMP 36.8; O2SAT 98; BMI 40.5
[2021-12-31 18:30] VITALS: BP 109/72; PULSE 78; RESP 18; O2SAT 99
[2021-12-31 19:00] VITALS: BP 119/76; PULSE 86; RESP 18; O2SAT 99
[2021-12-31 19:14] LABS: Basophils # 0.1 K/mm3 (0-0.2); Basophils % 0.9 % (0.1-2.0); Eosinophils # 0.2 K/mm3 (0.0-0.4); Eosinophils % 2.7 % (0.1-12.0); Lymphocytes # 2.1 K/mm3 (0.7-4.5); Lymphocytes % 27.9 % (10-50); Mean Corpuscular HGB Conc 33.3 g/dL (31.8-35.4); Mean Corpuscular Hemoglobin 29.4 pg (27.0-31.2); Mean Corpuscular Volume 88.5 fl (80-94); Mean Platelet Volume 6.3 fl (7.4-10.4); Monocytes # 0.7 K/mm3 (0.1-1.0); Monocytes % 9.6 % (1.7-9.3); Neutrophils # 4.4 K/mm3 (1.8-7.8); Neutrophils % 58.8 % (37.0-80.0); Platelet Count 409 K/mm3 (142-424); Red Blood Count 4.74 M/mm3 (4.60-6.20); Red Cell Distribution Width 12.9 % (11.5-17.5); White Blood Count 7.4 K/mm3 (4.8-10.8)
[2021-12-31 19:18] LABS: Chloride 104 mmol/L (98-107); Potassium 4.4 mmoL/L (3.5-5.1); Sodium 140 mmol/L (136-145)
[2021-12-31 19:20] LABS: Alanine Aminotransferase 46 U/L (12-78); Aspartate Amino Transferase 31 U/L (17-59); Blood Urea Nitrogen 12 mg/dl (9-20); Creatinine Clearance Estimated 185 mL/min (50-200); Estimated Glomerular Filt Rate 94 ml/min (>60); GFR (African American) 114 ML/MIN (>60)
[2021-12-31 19:21] LABS: Albumin Level 4.8 g/dl (3.5-5.0); Albumin/Globulin Ratio 1.6 (1.1-1.8); Alkaline Phosphatase 64 U/L (38-126); Anion Gap 12.4 mEq/L (5-15); Bilirubin,Total 0.4 mg/dl (0.2-1.3); Calcium 9.5 mg/dl (8.4-10.2); Carbon Dioxide 28 mmol/L (22.0-30.0); Glucose 116 mg/dl (74-100); Lipase 44 U/L (23-300); Total Protein,Serum 7.8 g/dl (6.3-8.2)
[2021-12-31 20:15] VITALS: BP 120/75; PULSE 86; RESP 18; TEMP 36.6; O2SAT 99
== END 2021-12-31 20:18 | disposition home or self-care (01) ==
PROVIDERS: Emergency Provider Emergency Medicine; PCP Physician Assistant
DX: R10.13 Epigastric pain (principal); Z87.891 Personal history of nicotine dependence
CPT/HCPCS: 74177; 80053; 83690; 85025; 99284; Q9967

== ENCOUNTER → 2022-01-16 14:56 | Outpatient (CLI) | payer MEDICAID, SELFPAY ==
--- NOTE | 2022-01-16 | CA_ITS ---
APPROVED REPORT Exam: Exercise Treadmill Technologist: Yumi Thorne, Ht: 5 ft 7 in Wt: 259 lbs BSA: 2.26 m2 HR: 93 bpm BP: 124/71 mmHg Medical History Medications: Lisinopril,,,,, Omeprazole,,,,, Simvastatin,,,,, HCTZ,,,,, Albuterol,,,,, Vitamin D2,,,,, Nitroglycerin,,,,, Fexofenadine,,,,, Glipizide er,,,,, Stress Test Details Test: [place] HR Resting HR: 120 bpm Max Heart Rate (APMHR): 182.358284 bpm Max HR Achieved: 186 bpm Target HR (85% APMHR): 154.700065 bpm % of APMHR: 102.20 Recovery HR: 122 bpm BP Resting BP: 131/65 mmHg Max BP: 170/100 mmHg Recovery BP: 113.0/55.0 mmHg ECG Clinical Exercise duration: 09:17 min Highest Stage Achieved: iv Exercise capacity: 10.1 METs Stress ECG Conclusion Symptoms: denies Arrhythmias/Ectopy: None ST-T Changes: <1.5mm ST Changes Test Summary REST . . . . . . . Resting REST . . . . . . . Standing REST 03:23 0.0 0.0 120 . 131/ 65 . . Stage 1 01:00 10.0 1.7 125 . . . . Stage 1 02:00 10.0 1.7 128 . . . . Stage 1 03:00 10.0 1.7 137 . 132/ 72 . . Stage 2 01:00 12.0 2.5 146 . . . . Stage 2 02:00 12.0 2.5 152 . 138/ 80 . . Stage 2 03:00 12.0 2.5 158 . 138/ 80 . . Stage 3 01:00 14.0 3.4 170 . . . . Stage 3 02:00 14.0 3.4 178 . 170/100 . . Stage 3 03:00 14.0 3.4 183 . 170/100 . . Stage 4 00:17 16.0 4.2 185 . . . Stop exercise at 09:17 RECOVERY 01:00 0.0 0.0 168 . . . . RECOVERY 02:00 0.0 0.0 149 . 144/ 90 . . RECOVERY 03:00 0.0 0.0 139 . 125/ 56 . . RECOVERY 04:00 0.0 0.0 132 . 125/ 56 . . RECOVERY 05:00 0.0 0.0 130 . 110/ 47 . . RECOVERY 06:00 0.0 0.0 126 . 110/ 47 . . RECOVERY 07:00 0.0 0.0 122 . 113/ 55 . . RECOVERY 08:00 0.0 0.0 124 . 113/ 55 . . RECOVERY 08:20 0.0 0.0 119 . 113/ 55 . . Electronically signed by : Reji Barr MD 01/16/2022 18:47:19
== END ==
PROVIDERS: PCP Physician Assistant; Visit Provider Physician Assistant
DX: R07.89 Other chest pain (principal)
CPT/HCPCS: 93017

== ENCOUNTER → 2022-01-26 06:33 | Outpatient (CLI) | payer MEDICAID, SELFPAY ==
[2022-01-26 19:10] LABS: Basophils # 0.1 K/mm3 (0-0.2); Basophils % 1.3 % (0.1-2.0); Eosinophils # 0.2 K/mm3 (0.0-0.4); Hematocrit 44.8 % (42.0-52.0); Hemoglobin 14.1 g/dL (14.1-18.0); Lymphocytes # 2.2 K/mm3 (0.7-4.5); Lymphocytes % 36.4 % (10-50); Mean Corpuscular HGB Conc 31.5 g/dL (31.8-35.4); Mean Corpuscular Hemoglobin 29.3 pg (27.0-31.2); Mean Corpuscular Volume 92.9 fl (80-94); Mean Platelet Volume 7.8 fl (7.4-10.4); Monocytes # 0.6 K/mm3 (0.1-1.0); Monocytes % 9.5 % (1.7-9.3); Neutrophils % 49.9 % (37.0-80.0); Platelet Count 450 K/mm3 (142-424); Red Blood Count 4.83 M/mm3 (4.60-6.20); Red Cell Distribution Width 13.2 % (11.5-17.5); White Blood Count 6.1 K/mm3 (4.8-10.8)
[2022-01-26 20:25] LABS: Alanine Aminotransferase 47 U/L (12-78); Albumin Level 4.7 g/dl (3.5-5.0); Albumin/Globulin Ratio 1.7 (1.1-1.8); Alkaline Phosphatase 78 U/L (38-126); Anion Gap 14.8 mEq/L (5-15); Aspartate Amino Transferase 29 U/L (17-59); Blood Urea Nitrogen 12 mg/dl (9-20); Carbon Dioxide 26 mmol/L (22.0-30.0); Chloride 103 mmol/L (98-107); Chol/HDL Ratio 4.1 (1-3.5); Cholesterol 153 mg/dl (140-200); Estimated Glomerular Filt Rate 84 ml/min (>60); GFR (African American) 101 ML/MIN (>60); Globulin 2.8 g/dL (1.3-3.2); HDL Cholesterol 37 mg/dl (40-60); Potassium 4.8 mmoL/L (3.5-5.1); Sodium 139 mmol/L (136-145); Total Protein,Serum 7.5 g/dl (6.3-8.2); Triglycerides 77 mg/dl (30-150); VLDL Cholesterol 15 mg/dL (0-40)
[2022-01-26 20:30] LABS: Bilirubin,Total < 0.1 mg/dl (0.2-1.3)
[2022-01-26 20:42] LABS: Glucose 94 mg/dl (74-100)
[2022-01-26 20:45] LABS: 25-OH Vitamin D, Total 36.1 ng/mL (30-100)
[2022-01-26 20:55] LABS: Hemoglobin A1C 5.9 % (4.0-6.0)
[2022-01-26 20:58] LABS: Thyroid Stimulating Hormone 0.65 uIU/mL (0.465-4.68)
[2022-01-26 21:21] LABS: Calcium 8.8 mg/dl (8.4-10.2)
[2022-01-27 09:06] LABS: Creatinine,Urine Random 47 mg/dL (Not Estab.)
[2022-01-27 09:11] LABS: Microalbumin < 6.000 mg/L (0-16.7)
[2022-01-28 08:36] LABS: Direct LDL Cholesterol 89 mg/dL (100-129)
[2022-01-29 08:49] LABS: Peripheral Smear Review Scanned Result
== END ==
PROVIDERS: PCP Physician Assistant; Visit Provider Physician Assistant
DX: E11.9 Type 2 diabetes mellitus without complications (principal); R79.89 Other specified abnormal findings of blood chemistry; R42 Dizziness and giddiness; R10.11 Right upper quadrant pain; R11.0 Nausea; I10 Essential (primary) hypertension; E78.5 Hyperlipidemia, unspecified; E66.01 Morbid (severe) obesity due to excess calories; Z68.41 Body mass index [BMI] 40.0-44.9, adult; Z79.84 Long term (current) use of oral hypoglycemic drugs
CPT/HCPCS: 80053; 80061; 82043; 82306; 82570; 83036; 84443; 85025

== ENCOUNTER → 2022-02-03 09:19 | Outpatient (CLI) | payer MEDICAID, SELFPAY ==
--- NOTE | 2022-02-03 09:20 | US_ITS ---
FINAL REPORT CLINICAL HISTORY: RUQ pain, vomiting FINDINGS: ULTRASOUND RIGHT UPPER QUADRANT Sonographic imaging of the right upper quadrant was obtained. The pancreas is partially obscured. The liver is increased echogenicity consistent with fatty infiltration. There are several echogenic shadowing foci in the gallbladder which are probably stones. There is no gallbladder wall thickening. There is no biliary ductal dilatation. The common duct is normal at 2 mm. The right kidney measures 10.2 cm in length. There is an upper pole simple cyst measuring 2.8 x 2.6 cm. IMPRESSION: Fatty liver. Probable gallstones. Right renal cyst. Reviewed, Interpreted and Dictated by Silas Boucher MD Transcribed by Jerilyn Ram Authenticated and [facility]
== END ==
PROVIDERS: PCP Physician Assistant; Visit Provider Physician Assistant
DX: R10.11 Right upper quadrant pain (principal); R11.10 Vomiting, unspecified
CPT/HCPCS: 76705

== ENCOUNTER → 2022-02-22 16:58 | Outpatient (CLI) | payer MEDICAID, SELFPAY ==
[2022-02-22 15:37] LABS: Basophils # 0.1 K/mm3 (0-0.2); Basophils % 1.4 % (0.1-2.0); Eosinophils # 0.2 K/mm3 (0.0-0.4); Eosinophils % 2.6 % (0.1-12.0); Hemoglobin 13.7 g/dL (14.1-18.0); Lymphocytes # 3.1 K/mm3 (0.7-4.5); Lymphocytes % 43.8 % (10-50); Mean Corpuscular HGB Conc 33.4 g/dL (31.8-35.4); Mean Corpuscular Hemoglobin 29.9 pg (27.0-31.2); Mean Corpuscular Volume 89.5 fl (80-94); Monocytes # 0.9 K/mm3 (0.1-1.0); Monocytes % 12.9 % (1.7-9.3); Neutrophils # 2.8 K/mm3 (1.8-7.8); Neutrophils % 39.3 % (37.0-80.0); Platelet Count 478 K/mm3 (142-424); Red Blood Count 4.58 M/mm3 (4.60-6.20)
[2022-02-22 15:57] LABS: Alanine Aminotransferase 46 U/L (12-78); Albumin Level 4.4 g/dl (3.5-5.0); Albumin/Globulin Ratio 1.8 (1.1-1.8); Alkaline Phosphatase 81 U/L (38-126); Anion Gap 13.5 mEq/L (5-15); Aspartate Amino Transferase 31 U/L (17-59); Blood Urea Nitrogen 13 mg/dl (9-20); Calcium 9.3 mg/dl (8.4-10.2); Carbon Dioxide 22 mmol/L (22.0-30.0); Chloride 107 mmol/L (98-107); Estimated Glomerular Filt Rate 94 ml/min (>60); GFR (African American) 114 ML/MIN (>60); Globulin 2.5 g/dL (1.3-3.2); Glucose 99 mg/dl (74-100); Magnesium 1.8 mg/dl (1.6-2.3); Potassium 4.5 mmoL/L (3.5-5.1); Sodium 138 mmol/L (136-145); Total Protein,Serum 6.9 g/dl (6.3-8.2)
[2022-02-22 16:02] LABS: Bilirubin,Total < 0.1 mg/dl (0.2-1.3)
[2022-02-22 16:03] LABS: Hemoglobin A1C 6.2 % (4.0-6.0)
[2022-02-22 16:04] LABS: C-Reactive Protein 1.2 mg/L (0-4); Erythrocyte Sedimentation Rate 13 mm/hr (0-15)
[2022-02-22 16:08] LABS: Intact Parathyroid Hormone 29.8 pg/mL (7.5-53.5)
[2022-02-22 16:14] LABS: 25-OH Vitamin D, Total 18.6 ng/mL (30-100)
[2022-02-22 16:27] LABS: Thyroid Stimulating Hormone 1.13 uIU/mL (0.465-4.68)
== END ==
PROVIDERS: PCP Physician Assistant; Visit Provider Physician Assistant
DX: R42 Dizziness and giddiness (principal); R25.3 Fasciculation; E55.9 Vitamin D deficiency, unspecified; Z79.899 Other long term (current) drug therapy
CPT/HCPCS: 80053; 82306; 83036; 83735; 83970; 84443; 85025; 85651; 86140

== ENCOUNTER → 2022-03-07 15:17 | Outpatient (CLI) | payer MEDICAID, SELFPAY ==
--- NOTE | 2022-03-07 15:20 | CA_ITS ---
FINAL REPORT CLINICAL HISTORY: Dizziness, Obesity, HTN, HLD, Pre-diabetic FINDINGS: RIGHT CAROTID: CCA PSV 119 cm/sec ICA PSV 109 cm/sec ICA/CCA PSV ratio .92 Comments: Mild plaque disease is noted. LEFTCAROTID: CCA PSV 101 cm/sec ICA PSV 109 cm/sec ICA/CCA PSV ratio 1.1 Comments: Mild plaque disease is noted. Antegrade flow is seen within the vertebral arteries. IMPRESSION: No evidence of hemodynamically significant stenosis. Reviewed, Interpreted and Dictated by Allan Fam MD Transcribed by Sheela Dugan Authenticated and [facility]
== END ==
PROVIDERS: PCP Physician Assistant; Visit Provider Nurse Practitioner Family
DX: R42 Dizziness and giddiness; I10 Essential (primary) hypertension; R51.9 Headache, unspecified; R25.3 Fasciculation; U09.9 Post COVID-19 condition, unspecified
CPT/HCPCS: 93880

== ENCOUNTER 2022-03-30 09:49 | Day surgery (SDC) | payer MEDICAID, SELFPAY ==
[2022-03-28 15:04] VITALS: BMI 38.0
[2022-03-28 15:13] VITALS: BMI 38.0
[2022-03-30] VITALS (12 sets, daily range): BP systolic 123–158; BP diastolic 74–87; PULSE 75–99; RESP 12–18; TEMP 36.2–43; O2SAT 97–100
[2022-03-30 10:28] LABS: POC Glucose,Bedside 124 (70-110)
--- NOTE | 2022-03-30 10:29 | P.PN_ITS ---
[facility] Medical History Allergic rhinitis Chest pain Diabetes mellitus Dyspnea Hyperlipidemia Hypertension Pre-diabetes Tobacco abuse Surgical History History of appendectomy Family History (Updated 03/28/22 @ 15:08 by Rossy Alejandro, RN) Other Coronary artery disease Family history of myocardial infarction Social History (Updated 03/28/22 @ 15:09 by Rossy Alejandro, TARAH) Smoking Status: Former smoker second hand exposure: Yes alcohol intake: never substance use type: denies use current occupational status: unemployed Travel in the last 8 weeks: None household members: family housing: house [facility] Anesthesia Checklist Patient Identification Patient Identification: Arm Band Structural Data Admitted From: Home Planned Operative Procedure/s: Laparoscopic Cholecystectomy Consent for Planned Operative Procedure(s) Verified: Yes Verified Documents: Surgical Consent and History and Physical NPO Status Verified Time NPO: 00:00 Additional verifications Anesthesia Reactions: No Hx Blood Transfusions: No Blood Transfusion Reaction: No Airway Assessment C-Spine Mobility Assessed: Yes TMJ Mobility Assessed: Yes Dentition: Edentulous Neurological Assessment Level of Consciousness: Awake and Alert Anesthesia Plan Anesthesia Risk discussed: Yes Anesthesia Plan: Verified ASA Class: III Anesthesia Type: General
--- NOTE | 2022-03-30 13:14 | P.OP_ITS ---
Date of procedure: 03/30/22 Pre-op Diagnosis:: Symptomatic cholelithiasis Post-op Diagnosis:: Acute calculus cholecystitis Procedure performed:: Laparoscopic cholecystectomy Surgeon:: Demario Yeboah MD COLD ROLL INSPECTOR:: Paul Sr Anesthesia: GETA Estimated blood loss (mL): 15 Operative findings:: Significant pericholecystic fat stranding Moderate wall thickening Qihh-ol-skhuytwa acute inflammatory weeping along the infundibulum Operative note:: After informed consent was obtained, the patient was taken to the operating room and placed in the supine position. General anesthesia was induced and the abdomen was prepped and draped in a sterile fashion. After infiltration with local anesthetic an infraumbilical incision was made. A Veress needle was placed in position. The abdomen was insufflated. A 5 mm optical trocar was placed in position. Under direct visualization, a 12 mm trocar was placed in the subxiphoid position and 2 additional 5 mm trocars were placed in the right upper quadrant. The gallbladder was elevated up and over the liver margin. The tissue around the cystic duct was carefully dissected. 3 clips were placed proximally and the duct was transected with harmonic barney. Harmonic barney were then utilized to dissect the gallbladder away from the liver margin with careful attention to the control of the cystic artery. The gallbladder was placed in a retrieval bag and removed through the subxiphoid trocar site. The right upper quadrant was thoroughly irrigated. No active bleeding or bile leak was noted. Fascia at the subxiphoid trocar site was reapproximated utilizing the NeoClose device. The remaining trocars were removed. All wounds were irrigated and skin was closed with 4-0 Monocryl in a subcuticular fashion. Steri-Strips were applied. The patient's anesthetic agents were reversed and extubation was completed prior to transfer to recovery in stable condition. Condition: stable Disposition: PACU Specimens:: Gallbladder Complications:: No immediate
--- NOTE | 2022-03-30 13:17 | P.PNANES_ITS ---
[facility] Anesthesia Record Part I Anesthesia Record I Intake, IV Amount: 1,500 Estimated blood loss (mL): 0 Urine output (mL): 0 Blood Pressure: 158/87 SaO2: 98 Pulse Rate: 93 Respiratory Rate: 12 Temperature: 98 F Patient is:: Awake and Stable Stable to PACU at:: 13:15
--- NOTE | 2022-03-30 13:30 | SUR.PHASEI ---
1325 BS obtained with result of Eliot. Allan Sr CRNA notified. no new orders given at this time.
[2022-03-30 13:31] LABS: POC Glucose,Bedside 159 (70-110)
--- NOTE | 2022-03-30 13:46 | SUR.PHASEI ---
1342 called and gave detailed report to Joan Sharma RN [id number] transported via stretcher to post op. vital signs stable. rates pain at a 4. left in stable condition with Joan Sharma RN at bedside.
--- NOTE | 2022-04-03 08:41 | P.PNANES_ITS ---
[facility] Anesthesia Record Part II Anesthesia Record Part II Discharge Time: 13:45 Destination: Surgical Day Care (OP Surgery) PACU nurse assessment reviewed?: Yes Patient Condition:: Good Anesthesia Complications:: None Swallowing reflex intact?: Yes Cyanosis?: No Blood Pressure: 123/74 Pulse Rate: 76 Temperature: 97.4 F Mental Status: Alert & Oriented Pain level:: 4 Nausea and/or vomitting:: None Intake, IV Amount: 0
[2022-04-03 08:42] VITALS: BP 123/74; PULSE 76; TEMP 36.3
== END 2022-03-30 14:19 | disposition home or self-care (01) ==
PROVIDERS: PCP Physician Assistant; Visit Provider Surgery
PROC: 0FT44ZZ Resection of Gallbladder, Percutaneous Endoscopic Approach (ICD-10-PCS; CPT 47562; principal; 2022-03-30 11:45)
DX: Z79.899 Other long term (current) drug therapy; E11.9 Type 2 diabetes mellitus without complications; K80.10 Calculus of gallbladder with chronic cholecystitis without obstruction
CPT/HCPCS: 47562; 82962; 96374; J2405; J2710

== ENCOUNTER → 2022-04-27 16:48 | Outpatient (CLI) | payer MEDICAID, SELFPAY ==
[2022-04-27 21:05] LABS: Vitamin B12 459 pg/mL (239-931)
== END ==
PROVIDERS: PCP Physician Assistant; Visit Provider Nurse Practitioner Family
DX: D75.839 Thrombocytosis, unspecified (principal); R42 Dizziness and giddiness; K80.20 Calculus of gallbladder without cholecystitis without obstruction; E55.9 Vitamin D deficiency, unspecified; F41.8 Other specified anxiety disorders; G47.9 Sleep disorder, unspecified; Z68.41 Body mass index [BMI] 40.0-44.9, adult; E66.9 Obesity, unspecified
CPT/HCPCS: 36415; 82607

== ENCOUNTER → 2022-05-05 15:44 | Outpatient (CLI) | payer MEDICAID, SELFPAY | PROVIDERS: PCP Physician Assistant; Visit Provider Nurse Practitioner Family | DX: G47.9 Sleep disorder, unspecified (principal); G47.30 Sleep apnea, unspecified; R42 Dizziness and giddiness; E55.9 Vitamin D deficiency, unspecified; D75.839 Thrombocytosis, unspecified; F41.8 Other specified anxiety disorders | CPT/HCPCS: 95806 ==

== ENCOUNTER → 2022-05-18 16:50 | Outpatient (CLI) | payer MEDICAID, SELFPAY ==
[2022-05-18 19:02] LABS: Vitamin B12 499 pg/mL (239-931)
== END ==
PROVIDERS: PCP Physician Assistant; Visit Provider Nurse Practitioner Family
DX: R42 Dizziness and giddiness (principal); H93.19 Tinnitus, unspecified ear
CPT/HCPCS: 36415; 82607

== ENCOUNTER → 2022-05-19 07:59 | Outpatient (CLI) | payer MEDICAID, SELFPAY ==
--- NOTE | 2022-05-19 08:04 | MR_ITS ---
FINAL REPORT CLINICAL HISTORY: Eval posterior circulation. Differential: Enceph, seizure, TIA, CVA, mass. CONSTANT DIZZINESS AND LIGHTHEADEDNESS X7 MONTHS. FINDINGS: Multiple projection images of the neck arterial vasculature were obtained without contrast. The raw data images were also reviewed. The right common carotid artery has an unremarkable appearance without evidence of stenosis or occlusion. The right internal carotid artery has an unremarkable appearance without evidence of stenosis or occlusion. The right external carotid artery is patent. The right vertebral artery is patent without evidence of stenosis. The left common carotid artery has an unremarkable appearance without evidence of stenosis or occlusion. The left internal carotid artery is patent without evidence of stenosis or occlusion. The left external carotid artery is patent. The left vertebral artery is patent without evidence of stenosis. IMPRESSION: Unremarkable MR angiogram of the neck without evidence of stenosis or occlusion. Reviewed, Interpreted and Dictated by Hector Martinez III, MD Transcribed by Neo Stephen Authenticated and [facility]
--- NOTE | 2022-05-19 08:04 | MR_ITS ---
FINAL REPORT CLINICAL HISTORY: Eval posterior circulation. Differential: Enceph, seizure, TIA, CVA, mass. CONSTANT DIZZINESS AND LIGHTHEADEDNESS X7 MONTHS. FINDINGS: Multiple projection images of the brain arterial vasculature were obtained without contrast. The raw data images were also reviewed. The distal internal carotid, distal vertebral and basilar arteries have an unremarkable appearance without evidence of significant stenosis or occlusion. The proximal anterior, middle and posterior cerebral arteries have an unremarkable appearance. There is no evidence of significant stenosis or major branch occlusion. No aneurysm or vascular malformation is identified. IMPRESSION: Unremarkable MR angiogram of the head. Reviewed, Interpreted and Dictated by Hector Martinez III, MD Transcribed by Neo Stephen Authenticated and [facility]
--- NOTE | 2022-05-19 08:04 | MR_ITS ---
FINAL REPORT CLINICAL HISTORY: Differential: Enceph, seizure, TIA, CVA, mass. CONSTANT DIZZINESS AND LIGHTHEADEDNESS X7 MONTHS. 24ML PROHANCE GIVEN. FINDINGS: Multiplanar MR imaging of the brain was performed without and with contrast. There is no evidence of intracranial hemorrhage or mass. No abnormal extra-axial fluid collection is seen. The ventricular size is within normal limits. There is no evidence of shift of the midline structures. The posterior fossa and brainstem have an unremarkable appearance. No area of abnormal restricted diffusion is identified. No abnormal contrast enhancement is seen. There is mucosal thickening in multiple sinuses. There is a retention cyst or polyp in the right sphenoid sinus. Normal major vessel vascular flow voids are noted. IMPRESSION: No acute intracranial abnormality identified. Reviewed, Interpreted and Dictated by Hector Martinez III, MD Transcribed by Neo Stephen Authenticated and . [facility]
== END ==
PROVIDERS: PCP Physician Assistant; Visit Provider Nurse Practitioner Family
DX: R42 Dizziness and giddiness (principal); G51.39 Clonic hemifacial spasm, unspecified; H93.19 Tinnitus, unspecified ear; R46.89 Other symptoms and signs involving appearance and behavior
CPT/HCPCS: 70544; 70547; 70553; A9576

== ENCOUNTER → 2022-06-08 13:59 | Outpatient (CLI) | payer MEDICAID, SELFPAY ==
[2022-06-08 14:24] LABS: Basophils # 0.1 K/mm3 (0-0.2); Basophils % 1.1 % (0.1-2.0); Eosinophils # 0.2 K/mm3 (0.0-0.4); Hematocrit 42.1 % (42.0-52.0); Hemoglobin 13.7 g/dL (14.1-18.0); Lymphocytes # 2.6 K/mm3 (0.7-4.5); Lymphocytes % 38.2 % (10-50); Mean Corpuscular HGB Conc 32.5 g/dL (31.8-35.4); Mean Corpuscular Hemoglobin 28.9 pg (27.0-31.2); Mean Platelet Volume 7.6 fl (7.4-10.4); Monocytes # 0.6 K/mm3 (0.1-1.0); Monocytes % 8.1 % (1.7-9.3); Neutrophils # 3.4 K/mm3 (1.8-7.8); Neutrophils % 49.5 % (37.0-80.0); Platelet Count 402 K/mm3 (142-424); Red Blood Count 4.72 M/mm3 (4.60-6.20); Red Cell Distribution Width 13.2 % (11.5-17.5); White Blood Count 6.8 K/mm3 (4.8-10.8)
[2022-06-08 15:17] LABS: Ferritin 24.7 ng/ml (17.9-464)
[2022-06-08 15:36] LABS: Iron 99 ug/dL (49-181)
[2022-06-08 15:45] LABS: Total Iron Binding Capacity 357 ug/dL (261-462)
== END ==
PROVIDERS: PCP Physician Assistant; Visit Provider Internal Medicine Medical Oncology
DX: D47.3 Essential (hemorrhagic) thrombocythemia (principal)
CPT/HCPCS: 36415; 81270; 82728; 83540; 83550; 85025

== ENCOUNTER → 2022-08-07 11:41 | Outpatient (CLI) | payer MEDICAID, SELFPAY ==
[2022-08-07 12:30] LABS: Basophils # 0.1 K/mm3 (0-0.2); Basophils % 1.4 % (0.1-2.0); Eosinophils # 0.2 K/mm3 (0.0-0.4); Eosinophils % 3.8 % (0.1-12.0); Hematocrit 42.1 % (42.0-52.0); Hemoglobin 14.2 g/dL (14.1-18.0); Lymphocytes # 2.6 K/mm3 (0.7-4.5); Lymphocytes % 40.9 % (10-50); Mean Corpuscular HGB Conc 33.7 g/dL (31.8-35.4); Mean Corpuscular Hemoglobin 29.2 pg (27.0-31.2); Mean Corpuscular Volume 86.6 fl (80-94); Mean Platelet Volume 7.1 fl (7.4-10.4); Monocytes # 0.6 K/mm3 (0.1-1.0); Monocytes % 9.5 % (1.7-9.3); Neutrophils # 2.8 K/mm3 (1.8-7.8); Neutrophils % 44.4 % (37.0-80.0); Platelet Count 412 K/mm3 (142-424); Red Blood Count 4.86 M/mm3 (4.60-6.20); Red Cell Distribution Width 13.1 % (11.5-17.5); White Blood Count 6.3 K/mm3 (4.8-10.8)
== END ==
PROVIDERS: PCP Physician Assistant; Visit Provider Internal Medicine Medical Oncology
DX: D75.839 Thrombocytosis, unspecified (principal)
CPT/HCPCS: 36415; 85025

== ENCOUNTER 2023-02-08 17:24 | Emergency (ER) | payer MEDICAID, SELFPAY ==
[2023-02-08 18:00] VITALS: BP 132/87; PULSE 85; RESP 16; TEMP 37.4; O2SAT 100; BMI 41.0
--- NOTE | 2023-02-08 18:03 | HMH.EDGENADL ---
Discharge Plan Disposition Patient Disposition: Home, Self-Care Prescriptions Prescriptions: No Action cholecalciferol (vitamin D3) [Vitamin D3] 50 mcg (2,000 unit) capsule See Rx Instructions .ROUTE .COMPLEX Qty: 90 3RF Dose Instruction: Take 1 capsule by mouth once daily Rx Instructions: Take 1 capsule by mouth once daily citalopram 10 mg tablet 10 mg PO DAILY Qty: 90 3RF fexofenadine 180 mg tablet 180 mg PO DAILY Qty: 90 3RF hydrochlorothiazide 12.5 mg tablet See Rx Instructions .ROUTE .COMPLEX Qty: 90 3RF Rx Instructions: Take 1 tablet by mouth once daily omeprazole magnesium 20 mg tablet,delayed release (DR/EC) 20 mg PO DAILY Qty: 90 3RF simvastatin 40 mg tablet See Rx Instructions .ROUTE .COMPLEX Qty: 90 3RF Dose Instruction: TAKE 1 TABLET BY MOUTH AT BEDTIME Rx Instructions: TAKE 1 TABLET BY MOUTH AT BEDTIME nitroglycerin 0.3 mg tablet, sublingual 0.3 mg SL Q5M PRN (Reason: chest pain) Qty: 25 0RF Rx Instructions: do not exceed 3 doses per episode olanzapine [Zyprexa] 10 mg tablet 10 mg PO HS Qty: 30 1RF lisinopril 40 mg tablet 40 mg PO DAILY Qty: 90 3RF Referrals Follow up/Referrals: Makeda Garcia PA [Primary Care Provider] - See instructions Activity Restrictions/Add. Instructions Additional Instructions/Restrictions: Your symptoms are nonspecific today there is no obvious source of your fever. You may take 1000 mg of Tylenol 3 times a day with or without a 10 mg of ibuprofen 3 times a day with food. Return with any worsening concerns. Clinical Impressions Clinical Impression: Fever, Pharyngitis Discharge ED Provider: [facility] HPI General Chief complaint: Fever Stated complaint: did have fever wants to be checked out Time Seen by Provider: 02/08/23 17:56 History of Present Illness HPI narrative: 37-year-old male here with a fever. States he had no symptoms but then when asked why he was taking his temperature he said that he was having a cold sweat and was found to have a fever at home on Sunday evening. Rechecked his temperature again today he denies any symptoms at this point and states that he was still febrile. Took ibuprofen this morning which helped. Denies any sore throat ear pain cough urinary symptoms rash etc. No medical problems other than hypertension and obesity. Related Data Previous Rx's Medication Instructions Recorded nitroglycerin 0.3 mg sublingual 0.3 mg sublingual Q5M PRN chest 12/05/21 tablet pain #25 tabs cholecalciferol (vitamin D3) 50 See Rx Instructions .Route 08/17/22 mcg (2,000 unit) capsule (Vitamin .COMPLEX #90 caps D3) citalopram 10 mg tablet 10 mg PO DAILY #90 tabs 08/17/22 fexofenadine 180 mg tablet 180 mg PO DAILY ALLERGIES #90 tabs 08/17/22 hydrochlorothiazide 12.5 mg tablet See Rx Instructions .Route 08/17/22 .COMPLEX BP #90 tabs omeprazole magnesium 20 mg 20 mg PO DAILY GERD #90 tabs 08/17/22 tablet,delayed release simvastatin 40 mg tablet See Rx Instructions .Route 08/17/22 .COMPLEX #90 tabs lisinopril 40 mg tablet 40 mg PO DAILY #90 tabs 11/03/22 olanzapine 10 mg tablet (Zyprexa) 10 mg PO HS #30 tabs 11/09/22 Allergies Allergy/AdvReac Type Severity Reaction Status Date / Time aspirin [ASPIRIN] Allergy Unknown Verified 11/19/22 11:03 [facility] Disclaimer: The information contained in this section may have been updated after the patient was seen, as this information can be updated by other users. Medical History Allergic rhinitis Chest pain Diabetes mellitus Dyspnea Hyperlipidemia Hypertension Insomnia Pre-diabetes Tobacco abuse Surgical History History of appendectomy History of laparoscopic cholecystectomy Family History Other Coronary artery disease
--- NOTE | 2023-02-08 18:56 | PC.NURSE ---
Strep swab sent to lab
--- NOTE | 2023-02-08 19:25 | PC.NURSE ---
Call to lab, 10 more minutes until strep is finished
[2023-02-08 19:38] LABS: Strep Scrn Group A (Rapid) Negative (Negative)
[2023-02-08 19:55] VITALS: BP 134/75; PULSE 80; RESP 16; TEMP 37.1; O2SAT 100
[2023-02-08 19:57] VITALS: BP 130/82; PULSE 83; RESP 20; TEMP 36.6; O2SAT 100
== END 2023-02-08 19:58 | disposition home or self-care (01) ==
PROVIDERS: Emergency Provider Student in an Organized Health Care Education/Training Program; PCP Physician Assistant
DX: R50.9 Fever, unspecified (principal); J02.9 Acute pharyngitis, unspecified; E11.9 Type 2 diabetes mellitus without complications; E78.5 Hyperlipidemia, unspecified; I10 Essential (primary) hypertension
CPT/HCPCS: 87430; 99283

== ENCOUNTER → 2023-04-04 06:39 | Outpatient (CLI) | payer BC, SELFPAY ==
[2023-04-04 18:21] LABS: Basophils # 0.1 K/mm3 (0-0.2); Basophils % 0.8 % (0.1-2.0); Eosinophils # 0.1 K/mm3 (0.0-0.4); Eosinophils % 2.2 % (0.1-12.0); Hematocrit 42.4 % (42.0-52.0); Hemoglobin 14.8 g/dL (14.1-18.0); Lymphocytes # 2.1 K/mm3 (0.7-4.5); Lymphocytes % 37.1 % (10-50); Mean Corpuscular HGB Conc 34.9 g/dL (31.8-35.4); Mean Corpuscular Hemoglobin 31.1 pg (27.0-31.2); Mean Corpuscular Volume 89.1 fl (80-94); Mean Platelet Volume 7.8 fl (7.4-10.4); Monocytes # 0.5 K/mm3 (0.1-1.0); Monocytes % 8.7 % (1.7-9.3); Neutrophils # 2.9 K/mm3 (1.8-7.8); Neutrophils % 51.1 % (37.0-80.0); Platelet Count 341 K/mm3 (142-424); Red Blood Count 4.77 M/mm3 (4.60-6.20); Red Cell Distribution Width 13.6 % (11.5-17.5); White Blood Count 5.7 K/mm3 (4.8-10.8)
[2023-04-04 19:19] LABS: Alanine Aminotransferase 72 U/L (12-78); Albumin Level 4.8 g/dl (3.5-5.0); Albumin/Globulin Ratio 1.7 (1.1-1.8); Alkaline Phosphatase 77 U/L (38-126); Anion Gap 17.4 mEq/L (5-15); Aspartate Amino Transferase 50 U/L (17-59); Bilirubin,Total 0.3 mg/dl (0.2-1.3); Blood Urea Nitrogen 11 mg/dl (9-20); Calcium 9.4 mg/dl (8.4-10.2); Carbon Dioxide 21 mmol/L (22.0-30.0); Chloride 104 mmol/L (98-107); Chol/HDL Ratio 4.5 (1-3.5); Cholesterol 179 mg/dl (140-200); Estimated Glomerular Filt Rate 83 ml/min (>60); GFR (African American) 101 ML/MIN (>60); Globulin 2.8 g/dL (1.3-3.2); Glucose 110 mg/dl (74-100); HDL Cholesterol 40 mg/dl (40-60); Potassium 4.4 mmoL/L (3.5-5.1); Sodium 138 mmol/L (136-145); Total Protein,Serum 7.6 g/dl (6.3-8.2); Triglycerides 97 mg/dl (30-150); VLDL Cholesterol 19 mg/dL (0-40)
[2023-04-04 19:30] LABS: Direct LDL Cholesterol 107.78 mg/dL (100-129)
[2023-04-04 19:36] LABS: 25-OH Vitamin D, Total 35.3 ng/mL (30-100)
[2023-04-04 19:52] LABS: Prostate Specific Ag Screen 0.7 ng/ml (0.0-4.0); Thyroid Stimulating Hormone 0.51 uIU/mL (0.465-4.68)
[2023-04-04 22:38] LABS: Hemoglobin A1C 6.3 % (4.0-6.0)
== END ==
PROVIDERS: PCP Physician Assistant; Visit Provider Physician Assistant
DX: Z68.41 Body mass index [BMI] 40.0-44.9, adult; E11.9 Type 2 diabetes mellitus without complications; I10 Essential (primary) hypertension
CPT/HCPCS: 80053; 80061; 82306; 83036; 84443; 85025; G0103

== ENCOUNTER 2023-04-14 14:47 | Emergency (ER) | payer BC, SELFPAY ==
[2023-04-14 14:54] VITALS: BP 138/97; PULSE 90; RESP 18; TEMP 37.1; O2SAT 98; BMI 40.7
--- NOTE | 2023-04-14 15:02 | HMH.EDGENADL ---
Discharge Plan Disposition Chief Complaint: Nausea/Vomiting/Diarrhea Prescriptions Prescriptions: No Action hydrochlorothiazide 12.5 mg tablet See Rx Instructions .ROUTE .COMPLEX Qty: 90 3RF Rx Instructions: Take 1 tablet by mouth once daily omeprazole magnesium 20 mg tablet,delayed release (DR/EC) 20 mg PO DAILY Qty: 90 3RF simvastatin 40 mg tablet See Rx Instructions .ROUTE .COMPLEX Qty: 90 3RF Dose Instruction: TAKE 1 TABLET BY MOUTH AT BEDTIME Rx Instructions: TAKE 1 TABLET BY MOUTH AT BEDTIME lisinopril 40 mg tablet 40 mg PO DAILY Qty: 90 3RF Referrals Follow up/Referrals: Makeda Garcia PA [Primary Care Provider] - See instructions Instructions Patient Instructions: DI for Diarrhea and Traveler's Diarrhea -- Adult, DI for Diarrhea and Traveler's Diarrhea -- Child, DI for Nausea -- Adult, DI for Nausea -- Child Discharge ED Provider: Jules D[facility] Adult HPI General Chief complaint: Nausea/Vomiting/Diarrhea Stated complaint: diarrhea Time Seen by Provider: 04/14/23 15:01 Mode of Arrival: Ambulatory Source of Information: Patient Limitations: No Limitations Description of Symptoms (Recalled from ER Triage Doc. by RN): diarrhea since History of Present Illness HPI narrative: The patient presents with a chief complaint of diarrhea since , experiencing approximately 15 episodes. The diarrhea is described as very runny, with no reported presence of blood. The patient denies any associated abdominal pain, nausea, or vomiting. The patient reports no recent illness among close contacts and no recent travel except for a trip to [place]. They tested negative for COVID-19 the night before the visit. The patient is able to maintain hydration and denies any fever or chills. They are unable to identify any specific meals that may have caused the diarrhea. The patient has no known medical conditions or medications and reports no recent changes in their health. They mention a history of back pain but do not report any pain in a specific abdominal area or pain associated with going to the bathroom. Related Data Previous Rx's Medication Instructions Recorded hydrochlorothiazide 12.5 mg tablet See Rx Instructions .Route 08/17/22 .COMPLEX BP #90 tabs omeprazole magnesium 20 mg 20 mg PO DAILY GERD #90 tabs 08/17/22 tablet,delayed release simvastatin 40 mg tablet See Rx Instructions .Route 08/17/22 .COMPLEX #90 tabs lisinopril 40 mg tablet 40 mg PO DAILY #90 tabs 11/03/22 Allergies Allergy/AdvReac Type Severity Reaction Status Date / Time aspirin [ASPIRIN] Allergy Unknown Verified 04/04/23 16:06 [facility] Disclaimer: The information contained in this section may have been updated after the patient was seen, as this information can be updated by other users. Medical History Allergic rhinitis Chest pain Diabetes mellitus Dyspnea Hyperlipidemia Hypertension Insomnia Pre-diabetes Tobacco abuse Surgical History History of appendectomy History of laparoscopic cholecystectomy Family History Other Coronary artery disease Family history of myocardial infarction Social History Smoking Status: Never smoker second hand exposure: Yes alcohol intake: never substance use type: denies use current occupational status: disabled Travel in the last 8 weeks: None adopted: No caregiver/support person: No foster care: No household members: family housing: house lives independently: Yes marital status: life partner number of children: 0 education level: high school Hx Recent Travel: No sexually active: Yes caffeine: No physical activity: none working smoke detector in home: Yes fire extinguisher in [place]
[2023-04-14 15:15] VITALS: BP 117/84; PULSE 89; RESP 18; O2SAT 97
--- NOTE | 2023-04-14 15:29 | PC.NURSE ---
stool specimen sent to lab
[2023-04-14 16:45] LABS: Chloride 102 mmol/L (98-107); Potassium 4.2 mmoL/L (3.5-5.1); Sodium 138 mmol/L (136-145)
[2023-04-14 16:48] LABS: Anion Gap 15.2 mEq/L (5-15); Blood Urea Nitrogen 13 mg/dl (9-20); Calcium 9.2 mg/dl (8.4-10.2); Carbon Dioxide 25 mmol/L (22.0-30.0); Creatinine Clearance Estimated 138 mL/min (50-200); Estimated Glomerular Filt Rate 67 ml/min (>60); GFR (African American) 82 ML/MIN (>60); Glucose 123 mg/dl (74-100)
[2023-04-14 16:59] VITALS: BP 128/89; PULSE 78; RESP 18; TEMP 36.9
[2023-04-16 18:11] LABS: C difficile Toxins AB, EIA Negative (Negative)
== END 2023-04-14 17:05 | disposition home or self-care (01) ==
PROVIDERS: Emergency Provider Emergency Medicine; PCP Physician Assistant
DX: R19.7 Diarrhea, unspecified (principal); I10 Essential (primary) hypertension; E78.5 Hyperlipidemia, unspecified
CPT/HCPCS: 80048; 87045; 87177; 87324; 99283

== ENCOUNTER 2023-05-02 17:28 | Emergency (ER) | payer BC, SELFPAY ==
[2023-05-02 17:28] VITALS: BP 152/99; PULSE 92; RESP 20; TEMP 36.8; O2SAT 96; BMI 40.7
--- NOTE | 2023-05-02 17:30 | EXP.UTC ---
Discharge Plan Prescriptions Prescriptions: No Action hydrochlorothiazide 12.5 mg tablet See Rx Instructions .ROUTE .COMPLEX Qty: 90 3RF Rx Instructions: Take 1 tablet by mouth once daily omeprazole magnesium 20 mg tablet,delayed release (DR/EC) 20 mg PO DAILY Qty: 90 3RF simvastatin 40 mg tablet See Rx Instructions .ROUTE .COMPLEX Qty: 90 3RF Dose Instruction: TAKE 1 TABLET BY MOUTH AT BEDTIME Rx Instructions: TAKE 1 TABLET BY MOUTH AT BEDTIME lisinopril 40 mg tablet 40 mg PO DAILY Qty: 90 3RF Probiotic 5 billion cell capsule, sprinkle 1 cap PO DAILY Qty: 10 0RF loperamide 2 mg capsule 2 mg PO Q6H PRN (Reason: loose stool) Qty: 10 0RF Referrals Follow up/Referrals: Makeda Garcia PA [Primary Care Provider] - See instructions Discharge ED Provider: Ronnie Art [facility] HPI General Stated complaint: congestion, sore throat Time Seen by Provider: 05/02/23 17:30 History of Present Illness Provider Complaint: He states that for the past 5 days he has had worsening sinus and nasal congestion. He states that his chest has began to get tight and he now has a productive cough. He denies fever/chills/body aches. Related Data Previous Rx's Medication Instructions Recorded hydrochlorothiazide 12.5 mg tablet See Rx Instructions .Route 08/17/22 .COMPLEX BP #90 tabs omeprazole magnesium 20 mg 20 mg PO DAILY GERD #90 tabs 08/17/22 tablet,delayed release simvastatin 40 mg tablet See Rx Instructions .Route 08/17/22 .COMPLEX #90 tabs lisinopril 40 mg tablet 40 mg PO DAILY #90 tabs 11/03/22 Lactobacil.acidophilus-Bifido.animalis 1 cap PO DAILY #10 caps 04/14/23 5 billion cell sprinkle capsule (Probiotic) loperamide 2 mg capsule 2 mg PO Q6H PRN loose stool #10 04/14/23 caps Allergies Allergy/AdvReac Type Severity Reaction Status Date / Time aspirin [ASPIRIN] Allergy Unknown Verified 04/16/23 16:04 [facility] Disclaimer: The information contained in this section may have been updated after the patient was seen, as this information can be updated by other users. Medical History Allergic rhinitis Chest pain Diabetes mellitus Dyspnea Hyperlipidemia Hypertension Insomnia Pre-diabetes Tobacco abuse Surgical History History of appendectomy History of laparoscopic cholecystectomy Family History Other Coronary artery disease Family history of myocardial infarction Social History Smoking Status: Never smoker second hand exposure: Yes alcohol intake: never substance use type: denies use current occupational status: disabled Travel in the last 8 weeks: None adopted: No caregiver/support person: No foster care: No household members: family housing: house lives independently: Yes marital status: life partner number of children: 0 education level: high school Hx Recent Travel: No sexually active: Yes caffeine: No physical activity: none working smoke detector in home: Yes fire extinguisher in home: Yes carbon monox detector in home: Yes firearms in home: Yes firearms unloaded and locked: Yes do you feel safe at home: Yes victim of physical abuse: No victim of emotional abuse: No victim of sexual abuse: No would you like helpful sources: No ROS Obtained: Yes All systems reviewed & no additional complaints except as documented Constitutional Constitutional: Reports poor appetite Eyes Eyes: Reports system reviewed and no additional complaints, except as documented ENT Ears, Nose, Mouth, and Throat: Reports as per HPI Cardiovascular Cardiovascular: Reports system reviewed and no additional complaints, except as documented and Denies chest pain Respiratory Respiratory: Denies shortness of breath,
[2023-05-02 17:54] LABS: UTC Strep Screen (Rapid) Negative (Negative)
[2023-05-02 17:55] LABS: UTC Influenza A Antigen Negative (Negative); UTC Influenza B Antigen Negative (Negative)
[2023-05-02 18:17] VITALS: BP 152/99; PULSE 92; RESP 20; TEMP 36.8; O2SAT 96
--- NOTE | 2023-05-03 13:07 | PC.NURSE ---
pt called for resp test results
== END 2023-05-02 18:31 | disposition home or self-care (01) ==
PROVIDERS: Emergency Provider Nurse Practitioner Family; PCP Physician Assistant
DX: J01.90 Acute sinusitis, unspecified (principal); R09.81 Nasal congestion; R07.0 Pain in throat; R05.9 Cough, unspecified; I10 Essential (primary) hypertension; E78.5 Hyperlipidemia, unspecified; J30.9 Allergic rhinitis, unspecified; E11.9 Type 2 diabetes mellitus without complications; Z87.891 Personal history of nicotine dependence
CPT/HCPCS: 87635; 87804; 87880; 96372; 99212; 99214; G0463; J0696

== ENCOUNTER 2023-08-01 12:55 | Outpatient (CLI) | payer BC, SELFPAY ==
--- NOTE | 2023-08-01 12:56 | CT_ITS ---
FINAL REPORT TECHNIQUE: Thin section axial CT images with coronal and sagittal reformats were performed through the neck. This study was performed with techniques to keep radiation doses as low as reasonably achievable (ALARA). Individualized dose reduction techniques using automated exposure control or adjustment of mA and/or kV according to the patient''s size were employed. CLINICAL HISTORY: enlarged tonsils FINDINGS: There is mild lobular mucoperiosteal thickening in the maxillary sinuses, left greater than right. There are small scattered cervical lymph nodes bilaterally. Individual nodes measure up to 1.2 cm. There is no evidence of tonsillar abscess. There is stranding around the parotid glands bilaterally which is nonspecific. Salivary glands are normal. Larynx is unremarkable. Thyroid gland is unremarkable. IMPRESSION: No evidence of tonsillar abscess. Mild mucoperiosteal thickening in the maxillary sinuses, left greater than right. Reviewed, Interpreted and Dictated by Silas Boucher MD Transcribed by Caitlin Mcmahan Authenticated and [facility]
== END 2023-08-01 23:59 ==
LOC: RAD 12:56
PROVIDERS: PCP Physician Assistant; Visit Provider Nurse Practitioner
DX: J35.1 Hypertrophy of tonsils (principal); R59.1 Generalized enlarged lymph nodes
CPT/HCPCS: 70490

== ENCOUNTER 2023-10-24 10:05 | Outpatient (CLI) | payer BC, SELFPAY ==
[2023-10-24 18:09] LABS: Basophils # 0.1 K/mm3 (0-0.2); Basophils % 0.9 % (0.1-2.0); Eosinophils # 0.1 K/mm3 (0.0-0.4); Eosinophils % 2.1 % (0.1-12.0); Hematocrit 43.5 % (42.0-52.0); Hemoglobin 14.2 g/dL (14.1-18.0); Lymphocytes # 2.1 K/mm3 (0.7-4.5); Lymphocytes % 33.5 % (10-50); Mean Corpuscular HGB Conc 32.5 g/dL (31.8-35.4); Mean Corpuscular Hemoglobin 29.3 pg (27.0-31.2); Mean Corpuscular Volume 90.1 fl (80-94); Mean Platelet Volume 7.8 fl (7.4-10.4); Monocytes # 0.6 K/mm3 (0.1-1.0); Monocytes % 8.8 % (1.7-9.3); Neutrophils # 3.5 K/mm3 (1.8-7.8); Neutrophils % 54.8 % (37.0-80.0); Platelet Count 389 K/mm3 (142-424); Red Blood Count 4.83 M/mm3 (4.60-6.20); Red Cell Distribution Width 13.9 % (11.5-17.5); White Blood Count 6.4 K/mm3 (4.8-10.8)
[2023-10-24 18:27] LABS: Hemoglobin A1C 6.5 % (4.0-6.0)
[2023-10-24 18:30] LABS: Alanine Aminotransferase 58 U/L (12-78); Albumin Level 4.7 g/dl (3.5-5.0); Albumin/Globulin Ratio 1.6 (1.1-1.8); Alkaline Phosphatase 81 U/L (38-126); Anion Gap 17.4 mEq/L (5-15); Aspartate Amino Transferase 39 U/L (17-59); Bilirubin,Total 0.5 mg/dl (0.2-1.3); Blood Urea Nitrogen 11 mg/dl (9-20); Calcium 9.7 mg/dl (8.4-10.2); Carbon Dioxide 25 mmol/L (22.0-30.0); Chloride 102 mmol/L (98-107); Chol/HDL Ratio 4.1 (1-3.5); Cholesterol 155 mg/dl (140-200); Estimated Glomerular Filt Rate 83 ml/min (>60); GFR (African American) 100 ML/MIN (>60); Globulin 2.9 g/dL (1.3-3.2); Glucose 108 mg/dl (74-100); HDL Cholesterol 38 mg/dl (40-60); Potassium 4.4 mmoL/L (3.5-5.1); Sodium 140 mmol/L (136-145); Total Protein,Serum 7.6 g/dl (6.3-8.2); Triglycerides 126 mg/dl (30-150); VLDL Cholesterol 25 mg/dL (0-40)
[2023-10-24 18:41] LABS: Direct LDL Cholesterol 92.58 mg/dL (100-129)
[2023-10-24 18:48] LABS: 25-OH Vitamin D, Total 27.8 ng/mL (30-100)
[2023-10-24 19:01] LABS: Thyroid Stimulating Hormone 0.68 uIU/mL (0.465-4.68)
== END 2023-10-24 23:59 | disposition home or self-care (01) ==
LOC: LAB.DROPOF 10-25 10:05
PROVIDERS: PCP Physician Assistant; Visit Provider Physician Assistant
DX: E11.9 Type 2 diabetes mellitus without complications (principal); Z79.899 Other long term (current) drug therapy
CPT/HCPCS: 80053; 80061; 82306; 83036; 84443; 85025

== ENCOUNTER 2023-12-12 17:07 | Outpatient (CLI) | payer BC, SELFPAY ==
[2023-11-28 14:13] LABS: HIV (1&2) Antibody Rapid NONREACTIVE
[2023-11-30 05:10] LABS: HCV Ab Non Reactive (Non Reactive)
--- NOTE | 2023-12-12 17:30 | XR_ITS ---
PROCEDURE INFORMATION: Exam: XR Lumbosacral Spine Exam date and time: 12/12/2023 5:25 PM Age: 38 years old Clinical indication: Low back pain TECHNIQUE: Imaging protocol: Radiologic exam of the lumbosacral spine. Views: 4 or 5 views. COMPARISON: CR XR LUMBAR SPINE MIN 4V 12/15/2021 7:39 PM FINDINGS: Bones/joints: Lumbar vertebrae normal in height. No acute fracture. Left lateral tilt. Multilevel marginal osteophytosis and facet arthropathy. Mild L5-S1 intervertebral disc space narrowing. Soft tissues: Unremarkable. IMPRESSION: 1. No acute osseous findings. 2. Multilevel lumbar spondylosis.
== END 2023-12-12 23:59 | disposition home or self-care (01) ==
LOC: LAB 17:09
PROVIDERS: PCP Physician Assistant; Visit Provider Physician Assistant
DX: M54.50 Low back pain, unspecified (principal); Z11.59 Encounter for screening for other viral diseases; Z11.4 Encounter for screening for human immunodeficiency virus [HIV]
CPT/HCPCS: 72110

== ENCOUNTER 2023-12-29 16:16 | Emergency (ER) | payer BC, SELFPAY ==
[2023-12-29 16:19] VITALS: BP 143/96; PULSE 84; RESP 15; TEMP 37.1; O2SAT 99; BMI 40.2
--- OUTSIDE RECORDS SUMMARY | 2023-12-29 16:25 | XMS_ITS | Patient Health Record ---
Author Name Unknown Organization [facility] Billing Info Address [address] [place] [id number] Care Team Providers Care Site Supervisor Name Role Phone JUMANA GUTIÉRREZ Unavailable [phone] JoseMakeda Unavailable Unavailable Allergies Allergen (clinical drug ingredient) Drug/Non Drug Allergy documented on EMR Reaction Allergy Type Onset Date Status aspirin Aspirin Unknown Drug Allergy Active Reason For Referral No Information Medications Medication SIG (Take, Route, Fr equency, Duration) Notes Start Date End Date Status Prilosec Active Simvastatin Active Lisinopril Active Hydrochlorothiazide Active Social History Tobacco Status: Question Answer Notes Patient is a non tobacco user Problems Problem Type SNOMED Code ICD Code Onset Dates Problem Status W/U Status Risk Notes Problem 13273631 Hypertension (I10) Active confirmed Problem 55718966 Diabetes (E11.9) Active confirmed Problem Gastroesophageal reflux disease (480315358) Reflux (K21.9) Active confirmed Problem Appendicitis (95394059) Appendicitis (K37) Active confirmed Problem High cholesterol (42205874) High cholesterol (E78.00) Active confirmed Plan Of Treatment No Information Insurance Providers Payer Name Payer Address Payer Phone Subscriber Number Group Number Insured Name Patient Relationship to Insured Coverage Start Date Coverage End Date [facility] [address] [address] CLAIMS DEPARTMENT [place], [place] [id number] DONALD QUITNANILLA Self - patient is the insured Medical (General) History Medical History History ICD Code Appendicitis K37 Diabetes E11.9 Hypertension I10 High cholesterol E78.00 Reflux K21.9 Surgical History Surgery Date(Month/Year) appendectomy
--- NOTE | 2023-12-29 16:52 | HMH.EDGENADL ---
Discharge Plan Disposition Patient Disposition: Home, Self-Care Prescriptions Prescriptions: New lidocaine 5 % adhesive patch,medicated 1 patch topical DAILY Qty: 30 0RF Rx Instructions: leave on most painful area for up to 12 hrs methocarbamol 500 mg tablet 1,000 mg PO TID PRN (Reason: muscle spasm) Qty: 30 0RF No Action omeprazole magnesium 20 mg tablet,delayed release (DR/EC) 20 mg PO DAILY Qty: 90 3RF mupirocin 2 % ointment 1 applic topical BID Qty: 15 0RF (DME) Dexcom G7 Sensor Device See Rx Instructions .Route Qty: 4 12RF Rx Instructions: As directed quetiapine [Seroquel] 100 mg tablet 100 mg PO QHS Qty: 30 1RF (DME) Dexcom G7 Nuclear Auxiliary Operator Misc See Rx Instructions .Route Qty: 1 0RF Rx Instructions: As directed Ozempic 0.25 mg or 0.5 mg (2 mg/3 mL) pen injector 0.25 mg SQ WEEKLY Qty: 3 2RF Rx Instructions: for 4 weeks lisinopril 40 mg tablet 40 mg PO DAILY Qty: 90 3RF simvastatin 40 mg tablet See Rx Instructions .ROUTE .COMPLEX Qty: 90 3RF Dose Instruction: TAKE 1 TABLET BY MOUTH AT BEDTIME Rx Instructions: TAKE 1 TABLET BY MOUTH AT BEDTIME cholecalciferol (vitamin D3) 1,250 mcg (50,000 unit) tablet 1,250 mcg PO WEEKLY Qty: 5 0RF metformin 500 mg tablet extended release 24 hr 500 mg PO DAILY Qty: 30 2RF hydrochlorothiazide 12.5 mg tablet See Rx Instructions .ROUTE .COMPLEX Qty: 90 0RF Dose Instruction: Take 1 tablet by mouth once daily Rx Instructions: Take 1 tablet by mouth once daily promethazine 12.5 mg tablet 12.5 mg PO TID PRN (Reason: nausea and vomiting) Qty: 30 0RF ondansetron 8 mg tablet,disintegrating 8 mg PO Q8H PRN (Reason: nausea and vomiting) Qty: 30 0RF ibuprofen 800 mg tablet 800 mg PO Q8H Qty: 90 2RF Referrals Follow up/Referrals: Makeda Garcia PA [Primary Care Provider] - See instructions Activity Restrictions/Add. Instructions Additional Instructions/Restrictions: At this time it was felt you are safe to be discharged home. If new or worsening symptoms please do not hesitate to return the emergency department. It may be worthwhile to follow-up with your family doctor for referral to physical therapy at [facility] such as Jake Brewster to help you with your chronic back pain. Clinical Impressions Clinical Impression: Back pain Instructions Patient Instructions: DI for Low Back Pain Discharge ED Provider: Ulysses Coughlin General Adult HPI General Chief complaint: Back Pain/Injury Stated complaint: lower back pain for three weeks Time Seen by Provider: 12/29/23 16:20 Mode of Arrival: Ambulatory Source of Information: Patient Limitations: No Limitations Description of Symptoms (Recalled from ER Triage Doc. by RN): c/o lower back pain for 3 weeks, no injury that he knows of. States he took ozempic a few weeks ago and was reading the side effects and he is worried that caused it. Seen his pcp who stopped his ozempic although his pain medicine has not improved. Took motrin and used a heating pad at home with no improvement History of Present Illness HPI narrative: Patient is a 38-year-old male with past medical history of chronic back pain who presents emergency department for evaluation of back pain. He has had back pain for many years however is usually responsive to heating pad and TENS unit. This time he has had back pain similar to what he always has, bilateral lumbar and intermittently radiates through to his abdomen when he is experiencing intense pain. However he does not have any vomiting, no diarrhea, no significant anterior abdominal pain, no chest pain. Due to persistent symptoms he presents here for continued evaluation. No trauma reported. Related Data Previous Rx's Medication Instructions Recorded omeprazole magnesium 20 mg 20 mg PO DAILY GERD #90 tabs 08/17/22 tablet,delayed release lisinopril 40 mg tablet 40 mg PO DAILY #90 tabs 11/03/22 quetiapine 100 mg tablet (Seroquel) 100 mg PO QHS #30 tabs 08/01/23 mupirocin 2 % topical ointment 1 applic topical BID #15 grams 08/24/23 simvastatin 40 mg tablet See Rx Instructions .Route 09/12/23 .COMPLEX #90 tabs cholecalciferol (vitamin D3) 1,250 1,250 mcg PO WEEKLY #5 tabs 10/26/23 mcg (50,000 unit) tablet hydrochlorothiazide 12.5 mg tablet See Rx Instructions .Route 10/26/23 .COMPLEX #90 tabs metformin 500 mg tablet,extended 500 mg PO DAILY #30 tabs 10/26/23 release 24 hr blood-glucose meter,continuous #1 ea 11/08/23 (Dexcom G7 Nuclear Auxiliary Operator) semaglutide 0.25 mg or 0.5 mg (2 0.25 mg (0.368 mL) SQ WEEKLY #3 mL 11/08/23 mg/3 mL) subcutaneous pen injector (Ozempic) ondansetron 8 mg disintegrating 8 mg PO Q8H PRN nausea and 11/13/23 tablet vomiting #30 tabs promethazine 12.5 mg tablet 12.5 mg PO TID PRN nausea and 11/13/23 vomiting #30 tabs blood-glucose sensor (Dexcom G7 #4 ea 11/27/23 Sensor device) ibuprofen 800 mg tablet 800 mg PO Q8H #90 tabs 11/28/23 lidocaine 5 % topical patch 1 patch topical DAILY #30 ea 12/29/23 methocarbamol 500 mg tablet 1,000 mg (2 x 500 mg) PO TID PRN 12/29/23 muscle spasm #30 tabs Allergies Allergy/AdvReac Type Severity Reaction Status Date / Time aspirin [ASPIRIN] Allergy Unknown Verified 12/17/23 16:06 [facility] Disclaimer: The information contained in this section may have been updated after the patient was seen, as this information can be updated by other users. Medical History Diabetes mellitus Prediabetes Skin abscess Lymphadenopathy Insomnia Chest pain Dyspnea Tobacco abuse Allergic rhinitis Hyperlipidemia Hypertension Pre-diabetes Surgical History History of laparoscopic cholecystectomy History of appendectomy Family History Other Coronary artery disease Family history of myocardial infarction Social History Smoking Status: Former smoker tobacco type: cigarettes packs per day: 1 second hand exposure: Yes alcohol intake: never substance use type: denies use current occupational status: disabled Travel in the last 8 weeks: None adopted: No caregiver/support person: No foster care: No household members: family housing: house lives independently: Yes marital status: life partner number of children: 0 education level: high school Hx Recent Travel: No sexually active: Yes caffeine: No physical activity: none working smoke detector in home: Yes fire extinguisher in home: Yes carbon monox detector in home: Yes firearms in home: Yes firearms unloaded and locked: Yes do you feel safe at home: Yes victim of physical abuse: No victim of emotional abuse: No victim of sexual abuse: No would you like helpful sources: No ROS Obtained: Yes Systems reviewed as appropriate & no additional complaints except as documented Physical Exam General General appearance: alert and in no apparent distress Head Head exam: atraumatic and normocephalic Eye Eye exam: Present PERRL and EOMI ENT ENT exam: Present mucous membranes moist Neck Neck exam: Present normal inspection Chest Chest inspection: Present normal inspection and symmetric chest wall rise Respiratory Respiratory exam: Present normal lung sounds bilaterally; Absent respiratory distress Cardiovascular Cardiovascular exam: Present regular rate and normal rhythm Abdominal Exam Abdominal exam: Present soft; Absent tenderness Extremities Exam Extremities exam: Present normal inspection Back Exam Back exam: Present tenderness (Paraspinal and midline) Neurological Exam Neurological exam: Present alert, oriented X3 and other (5 out of 5 strength bilateral upper and lower extremities.); Absent motor sensory deficit Psychiatric Psychiatric exam: Present normal affect Skin Skin exam: Present warm and dry Medical Decision Making Cesar Inquiry Pt receiving controlled substance: No Vital Signs: 12/29/23 16:19 Temperature 98.8 F Temperature Source Oral Pulse Rate [Left Radial] 84 Respiratory Rate 15 Blood Pressure [Right Arm] 143/96 H Blood Pressure Mean [Right Arm] 111 Blood Pressure Source [Right Arm] Automatic Cuff Blood Pressure Position [Right Arm] Sitting 02 Sat by Pulse Oximetry 99 Oxygen Delivery Method Room Air Lab Data Lab Results 12/29/23 17:05: WBC 7.2, RBC 5.03, Hgb 14.9, Hct 45.5, MCV 90.4, MCH 29.7, MCHC 32.8, RDW 14.2, Plt Count 377, MPV 6.9 L, Neut % (Auto) 58.3, Lymph % (Auto) 31.2, [facility] % (Auto) 8.0, Eos % (Auto) 1.3, Baso % (Auto) 1.2, Neut # (Auto) 4.2, Lymph # (Auto) 2.3, [facility] # (Auto) 0.6, Eos # (Auto) 0.1, Baso # (Auto) 0.1, Sodium 141, Potassium 4.1, Chloride 106, Carbon Dioxide 27, Anion Gap 12.1, BUN 8 L, Creatinine 1.10, Estimated Creat Clear 147, Estimated GFR 74, Est GFR ( Amer) 90, Glucose 109 H, Calcium 9.8, Total Bilirubin 0.5, AST 39, ALT 54, Alkaline Phosphatase 64, Total Protein 8.2, Albumin 4.7, Globulin 3.5 H, Albumin/Globulin Ratio 1.3, Lipase 74, Urine Color Yellow, Urine Appearance Clear, Urine pH 7.0, Ur Specific [place] 1.010, Urine Protein Negative, Urine Glucose (UA) Negative, Urine Ketones Negative, Urine Blood Negative, Urine Nitrate Negative, Urine Bilirubin Negative, Urine Urobilinogen 0.2, Ur Leukocyte Esterase Negative, Urine WBC Occasional, Ur Squamous Epith Cells Occasional 12/29/23 17:05 12/29/23 17:05 Orders (Tests/Meds): ED MEDICATIONS Discontinued Medications Generic Name Dose Route Start Last Admin Trade Name Joseq PRN Reason Stop Dose Admin Acetaminophen 1,000 mg 12/29/23 16:50 12/29/23 17:09 Acetaminophen 1,000mg/100ml Vial IV 12/29/23 16:51 1,000 mg ONCE ONE Administration Iopamidol 100 ml 12/29/23 18:15 12/29/23 18:15 Iopamidol-370 (76%);100ml Bottle IV 12/29/23 18:16 100 ml ONCE ONE Administration Ketorolac Tromethamine 30 mg 12/29/23 16:50 12/29/23 17:09 Ketorolac 30mg/Ml Vial IV 12/29/23 16:51 30 mg ONCE ONE Administration Lidocaine 1 each 12/29/23 16:50 12/29/23 17:09 Lidocaine 5% Transdermal Patch TP 12/29/23 16:51 1 each ONCE ONE Administration Methocarbamol 1,000 mg 12/29/23 16:52 12/29/23 17:09 Methocarbamol 500mg Tablet PO 12/29/23 16:53 1,000 mg ONCE ONE Administration Sodium Chloride 10 ml 12/29/23 18:15 12/29/23 18:15 Sodium Chloride 0.9% 10ml Syr (Rad Only) IV 12/29/23 18:16 10 ml ONCE ONE Administration Sodium Chloride 50 ml 12/29/23 18:15 12/29/23 18:15 0.9 % Sodium Chloride 50 Ml Vial IV 12/29/23 18:16 50 ml ONCE ONE Administration ORDERS Category Date Time Status CT angio abdomen pelvis Stat Cat Scan 12/29/23 16:54 Completed CBC w/Auto Diff [Complete Blood Count Auto Diff] Stat Lab 12/29/23 17:05 Completed CMP [Comprehensive Metabolic Panel] Stat Lab 12/29/23 17:05 Completed Lipase Stat Lab 12/29/23 17:05 Completed UA [Urinalysis and Microscopic] Stat Lab 12/29/23 17:05 Completed Medical Decision Narrative: In summary patient is a 38-year-old male with past medical history described above who presents emergency department for evaluation of acute on chronic lumbar back pain radiating through to his abdomen. Patient is hemodynamically stable nontoxic-appearing upon arrival, afebrile. Differential diagnosis includes acute on chronic lumbar ago, spontaneous compression deformity of the lumbar spine, aortic dissection, urinary tract infection, among others. Workup will be conducted with hematologic labs, CT abdomen pelvis IV contrast, urinalysis, lipase. Initial inventions include multimodal pain control. Initial workup reviewed by me, hematologic labs have no significant leukocytosis, no IBAN or critical electrolyte abnormality, urinalysis interpreted by me and not consistent with infection. CT informally visualized by me, no acute intra-abdominal catastrophe identified. Formal read shows no evidence of acute abnormality. Given this in similar location of pain I suspect this is acute on chronic back pain. Patient was amatory bedside and is appropriate discharge will be discharged with a course of methocarbamol and topical lidocaine patches. Critical Care Critical Care Time Critical Care Time: No
--- NOTE | 2023-12-29 16:54 | CT_ITS ---
PROCEDURE INFORMATION: Exam: CTA Abdomen and Pelvis With Contrast Exam date and time: 12/29/2023 6:15 PM Age: 38 years old Clinical indication: Abdominal pain; Generalized; Additional info: B/l lumbar pain rad through to abd, nontender abd TECHNIQUE: Imaging protocol: Computed tomographic angiography of the abdomen and pelvis with contrast. Exam focused on the arteries. 3D rendering (Not supervised by radiologist): MIP and/or 3D reconstructed images were created by the technologist. Radiation optimization: All CT scans at this facility use at least one of these dose optimization techniques: automated exposure control; mA and/or kV adjustment per patient size (includes targeted exams where dose is matched to clinical indication); or iterative reconstruction. Contrast material: ISO 370; Contrast volume: 100 ml; Contrast route: INTRAVENOUS (IV); COMPARISON: CT ABDOMEN PELVIS W CON 12/31/2021 7:27 PM FINDINGS: Aorta: No aortic aneurysm. No aortic dissection. Celiac trunk and mesenteric arteries: No occlusion or significant stenosis. Renal arteries: No occlusion or significant stenosis. Right iliac arteries: No occlusion or significant stenosis. Left iliac arteries: No occlusion or significant stenosis. Liver: Decreased density throughout the liver compatible with hepatic steatosis. Gallbladder and biliary ducts: Cholecystectomy Pancreas: Pancreas unremarkable Spleen: The spleen is unremarkable. Adrenal glands: Adrenal glands unremarkable. Kidneys and ureters: Right renal cyst. No hydronephrosis. Stomach and bowel: Unremarkable. No obstruction. No mucosal thickening. Appendix: Appendectomy Intraperitoneal space: Unremarkable. No free air. No significant fluid collection. Lymph nodes: Nonspecific retroperitoneal lymph nodes. Findings unchanged. Urinary bladder: Unremarkable. No mass. Reproductive: Unremarkable as visualized. Bones/joints: Lumbar spondylosis with multilevel disc degeneration. Soft tissues: Unremarkable. IMPRESSION: No evidence of acute abnormality.
[2023-12-29] MEDS: LIDOCAINE 5% TRANSDERMAL PATCH 1 EACH TP (17:09)
[2023-12-29] MEDS: ACETAMINOPHEN 1,000MG/100ML VIAL 1000 MG IV (17:09)
[2023-12-29] MEDS: METHOCARBAMOL 500MG TABLET 1000 MG PO (17:09)
[2023-12-29] MEDS: KETOROLAC 30MG/ML VIAL 30 MG IV (17:09)
[2023-12-29 17:13] LABS: Microscopic, Urine URINE MICROSCOPIC (MICROSCOPIC)
[2023-12-29 17:15] LABS: Appearance,Urine CLEAR (Clear); Basophils # 0.1 K/mm3 (0-0.2); Basophils % 1.2 % (0.1-2.0); Bilirubin,Urine Negative (Negative); Blood, Urine Negative (Negative); Color,Urine YELLOW (Yellow); Eosinophils # 0.1 K/mm3 (0.0-0.4); Eosinophils % 1.3 % (0.1-12.0); Glucose,Urine (UA) Negative (Negative); Hematocrit 45.5 % (42.0-52.0); Hemoglobin 14.9 g/dL (14.1-18.0); Ketones,Urine Negative (Negative); Leukocyte Esterase,Urine Negative (Negative); Lymphocytes # 2.3 K/mm3 (0.7-4.5); Lymphocytes % 31.2 % (10-50); Mean Corpuscular HGB Conc 32.8 g/dL (31.8-35.4); Mean Corpuscular Hemoglobin 29.7 pg (27.0-31.2); Mean Corpuscular Volume 90.4 fl (80-94); Mean Platelet Volume 6.9 fl (7.4-10.4); Monocytes # 0.6 K/mm3 (0.1-1.0); Neutrophils # 4.2 K/mm3 (1.8-7.8); Neutrophils % 58.3 % (37.0-80.0); Nitrate,Urine Negative (Negative); Platelet Count 377 K/mm3 (142-424); Protein,Urine Negative (Negative); Red Blood Count 5.03 M/mm3 (4.60-6.20); Red Cell Distribution Width 14.2 % (11.5-17.5); Urobilinogen,Urine 0.2 EU/dl (0.2); White Blood Count 7.2 K/mm3 (4.8-10.8)
[2023-12-29 17:19] LABS: Chloride 106 mmol/L (98-107); Sodium 141 mmol/L (136-145)
[2023-12-29 17:20] LABS: Potassium 4.1 mmoL/L (3.5-5.1)
[2023-12-29 17:22] LABS: Alanine Aminotransferase 54 U/L (12-78); Albumin Level 4.7 g/dl (3.5-5.0); Albumin/Globulin Ratio 1.3 (1.1-1.8); Alkaline Phosphatase 64 U/L (38-126); Anion Gap 12.1 mEq/L (5-15); Aspartate Amino Transferase 39 U/L (17-59); Bilirubin,Total 0.5 mg/dl (0.2-1.3); Blood Urea Nitrogen 8 mg/dl (9-20); Calcium 9.8 mg/dl (8.4-10.2); Carbon Dioxide 27 mmol/L (22.0-30.0); Creatinine Clearance Estimated 147 mL/min (50-200); Estimated Glomerular Filt Rate 74 ml/min (>60); GFR (African American) 90 ML/MIN (>60); Globulin 3.5 g/dL (1.3-3.2); Glucose 109 mg/dl (74-100); Lipase 74 U/L (23-300); Total Protein,Serum 8.2 g/dl (6.3-8.2)
[2023-12-29 17:40] LABS: Squamous Epithelial Cell,Urine Occasional #/hpf (0-5); WBC,Urine Occasional #/hpf (0-3)
[2023-12-29] MEDS: IOPAMIDOL-370 (76%);100ML BOTTLE 100 ML IV (18:15)
[2023-12-29] MEDS: SODIUM CHLORIDE 0.9% 10ML SYR (RAD ONLY) 10 ML IV (18:15)
[2023-12-29] MEDS: 0.9 % SODIUM CHLORIDE 50 ML VIAL IV (18:15)
[2023-12-29 20:04] VITALS: BP 114/73; PULSE 74; RESP 18; TEMP 36.6; O2SAT 99
== END 2023-12-29 20:05 | disposition home or self-care (01) ==
PROVIDERS: Emergency Provider Emergency Medicine; PCP Physician Assistant
DX: M54.50 Low back pain, unspecified (principal); E11.9 Type 2 diabetes mellitus without complications; E78.5 Hyperlipidemia, unspecified; I10 Essential (primary) hypertension; Z87.891 Personal history of nicotine dependence; Z79.84 Long term (current) use of oral hypoglycemic drugs
CPT/HCPCS: 74174; 80053; 81001; 83690; 85025; 96374; 96375; 99284; J0131; J1885; Q9967

== ENCOUNTER 2024-03-04 17:00 | Outpatient (RCR) | payer BC, SELFPAY ==
--- NOTE | 2024-01-15 18:11 | HMH.PTOPEV ---
PT Outpatient Evaluation Rehab PT Outpatient Evaluation Start: 01/15/24 17:20 Freq: Status: Active Protocol: Document 01/15/24 17:20 ELVIS (Rec: 01/15/24 18:10 ELVIS [id number]) E-signed By Jace Nuñez, PT Outpatient Therapy Subjective History Subjective History Patient is a 38 year old male presenting to outpatient PT with reports of chronic LBP with sub-acute exacerbation starting approx 4 months ago. Symptoms of insidious onset. Most recent imaging indicates multi-level LS spondylosis. Other comorbidities include hx of diabetes, HTN, HL, GERD, hx of cholecystectomy and appendectomy. New diagnosis of cancer in past 12 No months? Chief Complaint Pain,Stiff Symptom Type Ache,Throb Symptoms Relieved By Nothing Symptoms Aggravated By Standing,Bending/Stooping, Physical Activity,Walking, Lifting Prior Functional Limitations Lifting,Housework,Standing, Sitting,Walking,Bending/ Stooping Current Functional Limitations Lifting,Housework,Standing, Sitting,Walking,Bending/ Stooping Symptom Description Constant but Variable Level of pain today (0-10) 5 Pain scale - at its best (0-10) 5 Pain scale - at its worst (0-10) 10 Lumbopelvic Eval Posture Thoracic Spine Posture Standing Position Increased Kyphosis Lumbar Spine Posture Standing Position Increased Lordosis Assistive device Assistive Devices None / NA Palapation tenderness bilateral lumbar spinal tenderness Yes paraspinal tenderness Yes: L3-5 Accessory Movement L3 bilateral L4 bilateral L5 bilateral Range of Motion Lumbar Spine Active Flexion Range of 68 Motion (degrees) Lumbar Spine Active Extension Range of 17 Motion (degrees) Left Lumbar Spine Lateral Flexion Active 18 Range of Motion (degrees) Right Lumbar Spine Lateral Flexion 24 Active Range of Motion (degrees) Lumbar Spine ROM Limitations Soft Tissue Tightness Manual Muscle Test Bilateral Knee Extension Strength Grade 5 Normal Knee Flexion Strength Grade 5 Normal Hip Flexion Strength Grade 5 Normal Extensor Hallucis Longus Strength Grade 5 Normal Ankle Dorsiflexion Strength Grade 5 Normal Gastronemius/Soleus Strength Grade 5 Normal Altered Sensation Comment WNL all levels Special Tests Hip Jack (TREE) Test Positive Left,Positive Right Hip Romana Test Positive Left,Positive Right Hip Piriformis Test Positive Left,Positive Right Brett Test Positive Sacroiliac Joint Distraction Test Negative Left,Negative Right Lumbar Spine Monroe Test Negative Left,Negative Right Lumbar Long [place] Distraction Test/Manual Positive Traction Oswestry Index Section 1 Pain Intensity The pain is moderate and does not vary much Section 2 Personal Care (Washing,Dresing) my way of washing or dressing even though it causes some pain Section 3 Lifting I can lift heavy weights without extra pain Section 4 Walking I have some pain when walking but it does not increase with distance Section 5 Sitting I can sit in any chair for as long as I like Section 6 Standing I have some pain on standing, but it does not increase with time Section 7 Sleeping Because of my pain, my normal night's sleep is less than 4 hours Section 8 Social Life My social life is normal and gives me no extra pain Section 9 Traveling I get some pain when traveling , but none of my usual forms of travel m Section 10 Changing Degreee of Pain My pain is rapidly getting worse Score and Risk Level Oswestry Sc 15 Oswestry Risk Level Moderate Disability Outpatient Therapy Plan of Care Treatment Plan May Include Therapeutic Exercise Including Home Yes Exercise Program Manual Therapy Techniques Yes Neuromuscular Re-education Yes Therapeutic Activities to Return to Yes Previous Functional/Work Level Gait Training Yes ADL/Self Care Education Yes Mechanical Traction Yes Dry Needling Yes Thermal Modalities Yes Electrical Stimulation Yes Ultrasound/Phonophoresis Yes Iontophoresis Yes Orthotics/Bracing/Splinting Yes Massage Yes Eval/Re-Eval Yes Frequency Times per week 2 Duration Number of Weeks 4-6 Addendums This patient is a candidate for social No or vocational rehab? Patient/Guardian verbally acknowledges Yes understanding of treatment program and consents to further treatment? Patient/Guardian verbally acknowledges Yes understanding of diagnosis, prognosis and goals for treatment? Eval Complexity PT Charges 58271 - Moderate Complexity Shoulder/Elbow Eval Shoulder Objective Measurements Elbow Objective Measurements PHYSICIAN CERTIFICATION: I certify the specified therapy services for Brayden Garsia are required, authorized, and reviewed every 30 days.
== END 2024-03-04 23:59 | disposition home or self-care (01) ==
LOC: PT 17:00
PROVIDERS: Visit Provider Physician Assistant
DX: M54.50 Low back pain, unspecified (principal)
CPT/HCPCS: 97010; 97012; 97014; 97110; 97163; 97164; 97530; G0283

== ENCOUNTER 2025-04-05 08:35 | Outpatient (CLI) | payer OTHER, SELFPAY ==
[2025-04-05 20:18] LABS: Coronavirus 19, PCR Not Detected (NotDetected); Influenza A, PCR Not Detected (NotDetected); Influenza B, PCR Not Detected (NotDetected)
--- OUTSIDE RECORDS SUMMARY | 2025-04-07 08:41 | XMS_ITS | Clinical Summary ---
Author Organization [facility] Address [address] [place] [id number] Care Team Providers Care Export Packer Name Role Phone Unavailable Primary Care Provider [...] e 03/23/2023 Family and Community Support Answer Evaristo e Recorded Help with Day-to-Day Activities Not [...]
--- OUTSIDE RECORDS SUMMARY | 2025-04-07 08:42 | XMS_ITS | Patient Health Record ---
Author Organization [id number] [facility] Address [address] [place], [place] [id number] Care Team Providers Care Steam Blocker Name Role Phone JUMANA GUTIÉRREZ Unavailable [phone] Jose Makeda Unavailable Unavailable Allergies Allergen (clinical drug ingredient) [...] Problem Status W/U Status Risk Notes Problem 57832607 Hypertension (I10) Active confirmed Problem 99713631 Diabetes (E11.9) Active confirmed Problem Gastroesophageal reflux disease (681397621) Reflux (K21.9) Active confirmed Problem Appendicitis (46349061) Appendicitis (K37) Active confirmed Problem High cholesterol (44542992) High cholesterol (E78.00) Active confirmed Plan Of Treatment No Information Insurance Providers Payer Name Payer Address Payer Phone Subscriber Number Group Number Insured Name Patient Relationship to Insured Coverage Start Date Coverage End Date [facility] [address] [address] CLAIMS DEPARTMENT [place], [place] [id number] DONALD QUINTANILLA Self - patient is the insured Medical (General) History Medical History History ICD Code Appendicitis K37 Diabetes E11.9 Hypertension I10 High cholesterol E78.00 Reflux K21.9 Surgical History Surgery Date(Month/Year) appendectomy
--- OUTSIDE RECORDS SUMMARY | 2025-04-07 08:42 | XMS_ITS | Clinical Summary ---
Author Organization Healthcare Address [address] [place] [address] Care Team Providers Care Ecommerce Merchandising Manager Name Role Phone Kyler Fam MD Primary [...] of Treatment Not on file Care Teams Ecommerce Merchandising Manager Relationship Specialty Start Date End Date Kyler Fam MD [address] [place] [id number] PCP - General 10/22/20
== END 2025-04-05 23:59 ==
LOC: LAB.DROPOF 04-07 08:39
PROVIDERS: PCP Physician Assistant; Visit Provider Nurse Practitioner
DX: J06.9 Acute upper respiratory infection, unspecified (principal); J02.9 Acute pharyngitis, unspecified
CPT/HCPCS: 87631

== ENCOUNTER 2025-04-05 18:43 | Outpatient (CLI) | payer OTHER, SELFPAY ==
--- OUTSIDE RECORDS SUMMARY | 2025-04-05 18:47 | XMS_ITS | Clinical Summary ---
Author Organization Healthcare Address [address] [place] [address] Care Team Providers Care Work Adjustment Instructor Name Role Phone Kyler Fam MD Primary Care Provider Family History Medical History Relation Name Comments Cardiac disorder Father Diabetes Father Hypertension Father Diabetes Sister 1 Hypertension Sister 2 Relation Name Status Comments Father Sister 1 Sister 2 Social History Tobacco Use Types Packs/Day Years Used Date Smoking Tobacco: Every Day Alcohol Use Standard Drinks/Week Comments No 0 (1 standard drink = 0.6 oz pur e alcohol) Sex and Gender Information Value Date Recorded Sex Assigned at Not on file Legal Sex Male 6:17 PM EDT Gender Identity Not on file Sexual Orientation Not on file Last Filed Vital Signs Vital Sign Reading Time Taken Comments Blood Pressure - - Pulse - - Temperature - - Respiratory Rate - - Oxygen Saturation - - Inhaled Oxygen Concentration - - Weight 116 kg (255 lb 0.1 oz) 11/09/2015 8:13 AM EDT Height 170.2 cm (5' 7 ) 11/09/2015 8:13 AM EDT Body Mass Index 39.94 11/09/2015 8:13 AM EDT Plan of Treatment Not on file Care Teams Work Adjustment Instructor Relationship Specialty Start Date End Date Kyler Fam MD [address] [place] [id number] PCP - General 10/22/20
--- OUTSIDE RECORDS SUMMARY | 2025-04-05 18:47 | XMS_ITS | Clinical Summary ---
Author Organization [facility] Address [address] [place] [id number] Care Team Providers Care Exercise Equipment Specialist Name Role Phone Unavailable Primary Care Provider Unavailabl e Social History Tobacco Use Types Packs/Day Years Used Date Smoking Tobacco: Never Assessed Abuse Screen Answer Date Recorded Unsafe at Home or Work/School Not on file Feels Threatened by Someone? Not on file Does Anyone Keep You from Co ntacting Others or Doint Things Outside the Home? Not on file 03/23/2023 Physical Sign of Abuse Present Not on file 1 Housing Stability Answer Date Recorded Current Living Arrangements Not on file 03/11 Potentially Unsafe Housing Conditions Not on roni e 03/23/2023 Family and Community Support Answer Evaritso e Recorded Help with Day-to-Day Activities Not on file 03/23/2023 Lonely or Isolated Not on file 03/23/2023 Employment Answer Date Recorded Do you want help finding or keeping work or a vlad b? Not on file 03/23/2023 Disabilities Answer Date Recorded Concentrating, Remembering, or Making Decisions Difficulty Not on file 03/23/2023 Doing Errands Independently Difficulty Not on fi le 03/23/2023 Education Answer Date Recorded Help with school or training? Not on file Preferred Language Not on file 03/23/2023 Sex and Gender Information Value Date Recorded Sex Assigned at Not on file Legal Sex Male 2:10 PM EDT Gender Identity Not on file Sexual Orientation Not on file Plan of Treatment Health Maintenance Due Date Last Done Comments TDAP/TD VACCINES (1 - Tdap) 10/07/2002 ANNUAL PHYSICAL 05/16/2022 HEPATITIS C SCREENING 05/16/2022 INFLUENZA VACCINE 01/09/2025 Pneumococcal Vaccine 0-49 Aged Out No longer eligible based on patient's age to complete this topic Insurance
--- NOTE | 2025-04-05 18:55 | XR_ITS ---
PROCEDURE INFORMATION: Exam: XR Chest Exam date and time: 04/05/2025 6:49 PM Age: 39 years old Clinical indication: Cough TECHNIQUE: Imaging protocol: Radiologic exam of the chest. Views: 2 views. COMPARISON: CT ANGIO ABDOMEN PELVIS 12/29/2023 6:15 PM FINDINGS: Lungs: Clear lungs. Pleural spaces: No pneumothorax. No sizable pleural effusion. Heart/Mediastinum: No cardiomegaly. Bones/joints: Unremarkable. IMPRESSION: Clear lungs.
== END 2025-04-05 23:59 | disposition home or self-care (01) ==
LOC: RAD 18:45
PROVIDERS: PCP Physician Assistant; Visit Provider Nurse Practitioner
DX: R09.89 Other specified symptoms and signs involving the circulatory and respiratory systems (principal)
CPT/HCPCS: 71046